=== PATIENT | male | born 1980 | race Caucasian/White ===

== ENCOUNTER 2024-06-19 14:38 | Outpatient (OUT) | payer BC, SELFPAY | END 2024-06-19 14:39 | disposition home or self-care (01) | LOC: PST 14:39 | PROVIDERS: Visit Provider Urology | DX: Z01.818 Encounter for other preprocedural examination (principal); N20.2 Calculus of kidney with calculus of ureter; F17.200 Nicotine dependence, unspecified, uncomplicated ==

== ENCOUNTER 2024-06-24 10:57 | Day surgery (SDC) | payer BC, SELFPAY ==
[2024-06-24] VITALS (10 sets, daily range): BP systolic 72–141; BP diastolic 51–89; PULSE 70–89; TEMP 36.2–36.3; O2SAT 87–98; BMI 46.2
--- OUTSIDE RECORDS SUMMARY | 2024-06-24 11:21 | XMS_ITS | CCD ---
Author Organization [facility] Care Team Providers Care Jig Builder Helper Name Role Phone Adelita Navas Unavailable Lashay White Unavailable NO FAMILY, PHYSICIAN Primary Care Provider Reuben Burciaga MD Emergency Provider [phone] Joe PARRISH Primary Care Physician [phone] NO FAMILY, PHYSICIAN Primary Care Unavailable Reuben Freire Jr Attending Unavailable Reuben Freire Jr Admitting Unavailable YUN, Joe Leo Attending Unavailable PARRISH, Joe Leo Admitting Unavailable PARRISH, Joe Leo Attending Unavailable SYLVAIN GARDNER Attending Unavailable SYLVAIN GARDNER Admitting Unavailable PARRISH, Joe Leo Attending Unavailable PARRISH, Joe Leo Attending Unavailable PARRISH, Joe Leo Attending Unavailable PARRISH, Joe Leo Admitting Unavailable PARRISH, Joe Leo Attending Unavailable PARRISH, Joe Leo Admitting Unavailable PARRISH, Joe Leo Attending Unavailable Medications Current Medications Medication Drug Class(es) Dates Sig (Normalized) Sig (Original) acetaminophen 325 mg / oxyCODONE hydrochloride 5 mg oral tablet (5 sources) Opioid Agonist Start: 05-31-2024 take 1 tablet by mouth every six hours as needed for pain Oxycodone-Acetami nophen (Percocet) 5-325 mg tablet Active 1 - 2 TAB PO Every 6 hours as needed for pain 25 35 May 31, 2024 Start: 01-15-2020 End: 05-31-2024 take 1 tablet by mouth every six hours as needed for pain Oxycodone-Acetaminophen (Percocet) 5-325 mg tablet Discontinued 1 TAB PO Q6H as needed for pain 10 3 January 15, 2020 May 31, 2024 1:25am Start: 01-01-2019 End: 04-15-2019 take 1 tablet by mouth every six hours as needed for pain Oxycodone-Acetaminophen (Percocet) 5-325 mg tablet Discontinued 1 TAB PO Q6H as needed for pain 10 3 January 01, 2019 April 15, 2019 7:18pm Start: 12-07-2018 End: 12-25-2018 take 1 tablet by mouth every six hours as needed for pain Oxycodone-Acetaminophen (Percocet) 5-325 mg tablet Discontinued 1 TAB PO Q6H as needed for pain 15 4 December 07, 2018 December 25, 2018 2:30pm Start: 02-02-2018 End: 02-07-2018 take 1 tablet by mouth every four to six hours as needed for pain Oxycodone-Acetaminophen (Percocet) 5-325 mg tablet Discontinued 1 TAB PO EVERY 4-6 HOURS as needed for pain 20 February 02, 2018 February 05, 2018 11:00pm February 06, 2018 11:02pm cefdinir 300 mg oral capsule (1 source) Cephalosporin Antibacterial Start: 08-14-2021 take 1 capsule by mouth every twelve hours Cefdinir 300 MG 1 capsule Orally every 12 hrs for 10 day(s) Jul, Active cephalexin 500 mg oral capsule (2 sources) Cephalosporin Antibacterial Start: 05-31-2024 take 2 capsules by mouth twice daily Cephalexin 500 mg capsule Active 1000 MG PO Twice daily 28 May 31, 2024 12:00am Start: 02-02-2018 End: 02-12-2018 take 2 capsules by mouth twice daily Cephalexin (Keflex) 500 mg capsule Discontinued 1000 MG PO Twice daily 40 February 01, 2018 11:00pm February 10, 2018 11:00pm February 11, 2018 11:01pm cetirizine hydrochloride 10 mg oral tablet (2 sources) Histamine-1 Receptor Antagonist Start: 08-05-2021 take 1 tablet by mouth once daily Cetirizine HCl 10 MG 1 tablet Orally Once a day for 30 day(s) Jul, Active fluticasone propionate 0.05 mg/actuat metered dose nasal spray (2 sources) Corticosteroid Start: 08-05-2021 take 1 spray(s) nasal route once daily Flonase Allergy Relief 50 MCG/ACT 1 spray in each nostril Nasally Once a day for 30 day(s) Jul, Active ibuprofen 600 mg oral tablet (2 sources) Nonsteroidal Anti-inflammatory Drug Start: 05-31-2024 take 1 tablet by mouth every eight hours as needed for pain Ibuprofen 600 mg tablet Active 600 MG PO Q8H as needed for pain May 31, 2024 12:00am Start: 12-07-2018 End: 12-25-2018 take 1 tablet by mouth three times daily as needed for pain Ibuprofen 800 mg tablet Discontinued 800 MG PO Three times daily as needed for pain December 06, 2018 11:00pm December 25, 2018 2:30pm oxyCODONE (7 sources) Opioid Agonist Start: 05-01-2015 oxycodone Oral , Refills(s) 0 Start Date: 05/01/15 Status: Ordered penicillin v potassium 500 mg oral tablet (1 source) Start: 08-05-2021 take 1 tablet by mouth every twelve hours Penicillin V Potassium 500 MG 1 tablet Orally Twice a day for 10 day(s) Jul, Active promethazine hydrochloride 25 mg oral tablet (7 sources) Phenothiazine Start: 05-01-2015 take 1 tablet by mouth every six hours as needed for nausea Phenergan 25 mg Tab 25 mg = 1 tab(s), Oral, q6hr, PRN as needed for nausea/vomiting, # 10 tab(s), Refills(s) 1 Start Date: 05/01/15 Status: Ordered tamsulosin hydrochloride 0.4 mg oral capsule (15 sources) alpha-Adrenergic Mendoza Start: 06-19-2024 take 0.4 mg by mouth once daily Flomax 0.4 mg, Oral, Daily, Refills(s) 0 Start Date: 06/19/24 Status: Ordered Start: 06-05-2024 End: 06-26-2024 Flomax 0.4 mg Cap 0.4 mg = 1 cap(s), Oral, BID, Decrease to once a day if experiencing dizziness or lightheadedness., X 21 day(s), # 42 cap(s), Refills(s) 0, Pharmacy: [facility], 182, cm, 06/05/24 14:12:00 EST, Height/Length Dosing, 159.4, kg, 06/05/24 14:12:00 EST, Weight Dosing Start Date: 06/05/24 Stop Date: 06/26/24 Status: Ordered Start: 01-15-2020 End: 05-31-2024 Tamsulosin (Flomax) 0.4 mg c apsule Active 0.4 MG PO Daily May 31, 2024 12:00am administer 30 minutes after same meal each day until stone passes Start: 01-01-2019 End: 04-15-2019 take 1 capsule by mouth once daily at bedtime Tamsulosin (Flomax) 0.4 mg capsule Discontinued 0.4 MG PO Daily at bedtime 7 December 31, 2018 11:00pm April 15, 2019 7:18pm Start: 12-07-2018 End: 01-01-2019 Tamsulosin (Flomax) 0.4 mg capsule,extended release 24hr Discontinued 0.4 MG PO Daily 7 December 06, 2018 11:00pm January 01, 2019 3:11pm administer 30 minutes after same meal each day until stone passes Start: 02-02-2018 End: 12-07-2018 take 1 capsule by mouth once daily Tamsulosin (Flomax) 0.4 mg capsule Discontinued 0.4 MG PO Daily February 01, 2018 11:00pm December 07, 2018 3:02pm Completed/Discontinued Medications Medication Drug Class(es) Dates Sig (Normalized) Sig (Original) [id number] 200 actuat albuterol 0.09 mg/actuat metered dose inhaler (1 source) beta2-Adrenergic Agonist Start: 04-15-2019 End: 01-15-2020 Albuterol Sulfate 90 mcg/actuation HFA aerosol inhaler Discontinued 1 INH INHALATION EVERY 4-6 HOURS as needed for shortness of breath or wheezing 6.7 April 15, 2019 12:00am January 15, 2020 5:29am azithromycin 500 mg oral tablet (1 source) Macrolide Antimicrobial Start: 04-15-2019 End: 01-15-2020 take 2-5 tablets by mouth once daily Azithromycin (Zithromax Tri-Robel) 500 mg tablet Discontinued 0 PO .COMPLEX 3 April 15, 2019 12:00am January 15, 2020 5:29am take 500 mg today (day 1), then 250 mg for 4 days (days 2-5) benzonatate 100 mg oral capsule (1 source) Non-narcotic Antitussive Start: 04-15-2019 End: 01-15-2020 take 1 capsule by mouth three times daily as needed for cough Benzonatate (Tessalon Perles) 100 mg capsule Discontinued 100 MG PO Three times daily as needed for cough April 15, 2019 12:00am January 15, 2020 5:29am ketorolac tromethamine 10 mg oral tablet (3 sources) Nonsteroidal Anti-inflammatory Drug, Cyclooxygenase Inhibitor Start: 06-13-2024 End: 06-18-2024 take 1 tablet by mouth every six hours as needed ketorolac 10 mg Tab 10 mg = 1 tab(s), Oral, q6hr, PRN for pain, not to exceed 40 mg/day and 5 days duration for all dose forms, X 5 day(s), # 12 tab(s), Refills(s) 0, Pharmacy: [facility] 318, 182, cm, 06/05/24 14:12:00 EST, Height/Length Dosing, 159.4, kg, 06/05/24 14:12:00 EST, Weight Dosing Start Date: 06/13/24 Stop Date: 06/18/24 Status: Ordered Start: 01-15-2020 End: 05-31-2024 take 1 tablet by mouth every six hours as needed for pain Ketorolac 10 mg tablet Discontinued 10 MG PO Q6H as needed for pain 20 January 15, 2020 6:45am May 31, 2024 1:25am ondansetron 4 mg disintegrating oral tablet (3 sources) Serotonin-3 Receptor Antagonist Start: 01-15-2020 End: 05-31-2024 take 1 tablet by mouth every six hours as needed for nausea and vomiting Ondansetron 4 mg tablet,disintegrating Discontinued 4 MG PO Q6H as needed for nausea and vomiting January 14, 2020 11:00pm May 31, 2024 1:25am Start: 12-07-2018 End: 12-25-2018 take 1 tablet by mouth every eight hours as needed for nausea and vomiting Ondansetron 4 mg tablet,disintegrating Discontinued 4 MG PO Q8H as needed for nausea and vomiting December 06, 2018 11:00pm December 25, 2018 2:30pm Start: 02-02-2018 End: 02-07-2018 take 1 tablet by mouth three times daily Ondansetron Hcl (Zofran) 4 mg tablet Discontinued 4 MG PO Three times daily 15 5 February 01, 2018 11:00pm February 05, 2018 11:00pm February 06, 2018 11:02pm predniSONE 50 mg oral tablet (1 source) Start: 04-15-2019 End: 01-15-2020 take 1 tablet by mouth once daily Prednisone 50 mg tablet Discontinued 50 MG PO Daily 5 April 15, 2019 12:00am January 15, 2020 5:29am Problems Active Problems Problem Classification Problem Date Documented Date Episodic/Chronic Abdominal pain (1 source) Left lower quadrant pain; Translations: [Left lower quadrant pain] Onset: 05-30-2024 Episodic Calculus of urinary tract (20 sources) Renal colic; Translations: [Unspecified renal colic] Onset: 05-30-2024 03-29-2023 Episodic Comment on above: Problem List clean-u p per request of Phys. EHR Cmte Genitourinary symptoms and ill-defined conditions (2 sources) Disorder of urinary tract; Translations: [Disorder of urinary system, unspecified] Onset: 06-14-2024 03-29-2023 Episodic Comment on above: Problem List clean-u p per request of Phys. EHR Cmte Other diseases of kidney and ureters (2 sources) Urinary tract obstruction; Translations: [Hydronephrosis with renal and ureteral calculous obstruction] Onset: 06-05-2024 Episodic Otitis media and related conditions (2 sources) Other acute nonsuppurative otitis media, bilateral; Translations: [Acute left otitis media] Onset: 08-05-2021 Resolved: 08-05-2021 Episodic Comment on above: Problem List clean-u p per request of Phys. EHR Cmte Pneumonia (except that caused by tuberculosis or sexually transmitted disease) (1 source) Atypical pneumonia; Translations: [Pneumonia, unspecified organism] 03-29-2023 Episodic Comment on above: Problem List clean-u p per request of Phys. EHR Cmte Residual codes; unclassified (1 source) Tobacco user; Translations: [Tobacco use] 03-29-2023 Episodic Comment on above: Problem List clean-u p per request of Phys. EHR Cmte Substance-related disorders (9 sources) Nicotine dependence; Translations: [Nicotine dependence, unspecified, uncomplicated] Onset: 06-05-2024 Chronic Comment on above: Added secondary to d ocumentation in Social History. Unclassified (7 sources) Obstructive hydronephrosis 06-05-2024 Urinary tract infections (1 source) Urinary tract infectious disease; Translations: [Urinary tract infection, site not specified] 05-31-2024 Episodic Past or Other Problems Problem Classification Problem Date Documented Date Episodic/Chronic Other upper respiratory infections (3 sources) Streptococcal pharyngitis; Translations: [Acute pharyngitis, unspecified] Onset: 08-05-2021 Resolved: 08-14-2021 Episodic Results Test Name Value Interpretation Reference Range Facility Ambulatory Visit Summaryon 0 06-19-2024 Ambulatory Visit Summary Ambulatory Visit Summary GORDON CARRASQUILLO :1980 Visit Date:06/19/2024 Ambulatory Visit Instructions Your Diagnosis Ureteral stone with hydronephrosis Kidney stones History of kidney stones Smoker Your Care Team Attending Physician - Joe PARRISH MD Primary Care Physician - Joe PARRISH MD This Is Your Medications List tamsulosin (Flomax 0.4 mg Cap) Contact prescribing physician if questions or concerns oxycodone promethazine (Phenergan 25 mg Tab) tamsulosin (Flomax) Procedures Performed Cyst. Discharge Vitals Heart Rate (Peripheral) 85 Blood Pressure 158/102 Height 72 in Height 182 cm Weight 351.416 lb Weight 159.4 kg BMI 48.12 What to do next You Need to Schedule the Following Appointments Follow Up with YUN GRACE, Joe Leo, LORI When: Where: [facility] [address], [place] [address]- Medications What How Much When Instructions Unchanged tamsulosin (Flomax 0.4 mg Cap) 1 Capsules By Mouth 2 times a day Duration: 21 Days Decrease to once a day if experiencing dizziness or lightheadedness. Unchanged oxycodone By Mouth Contact prescribing physician if questions or concerns Unchanged promethazine (Phenergan 25 mg Tab) 1 Tablets By Mouth Every 6 hours as needed for as needed for nausea/vomiting Contact prescribing physician if questions or concerns Unchanged tamsulosin (Flomax) 0.4 Milligram By Mouth Every day Contact prescribing physician if questions or concerns Allergies No Known Allergies Problems Ongoing - Any problem that you are currently receiving treatment for. History of kidney stones Kidney stones Smoker Ureteral stone with hydronephrosis Historical - Any problem that you are no longer receiving treatment for. Kidney stone Patient Survey You may receive a survey via text or e-mail asking about your office visit. Please share your experience with us by completing your survey. We appreciate your feedback and thank you for choosing us for your care. Education Materials ESWL for Kidney Stones, Care After The following information offers guidance on how to care for yourself after your procedure. Your health care provider may also give you more specific instructions. If you have problems or questions, contact your health care provider. What can I expect after the procedure? After the procedure, it is common to have: ??? Some blood in your urine. This should only last for a few days. ??? Soreness in your back, sides, or upper abdomen for a few days. ??? Blotches or bruises on the area where the shock wave entered the skin. ??? Pain, discomfort, or nausea when pieces (fragments) of the kidney stone move through the tube that carries urine from the kidney to the bladder (ureter). Fragments may pass soon after the procedure. They may also take up to 4???8 weeks to pass. ? If you have severe pain or nausea, contact your health care provider. This may be caused by a large stone that was not broken up enough. This may mean that you need more treatment. ??? Some pain or discomfort during urination. ??? Some pain or discomfort in the lower abdomen or at the base of the penis. Follow these instructions at home: Medicines ??? Take [id number] and prescription medicines only as told by your health care provider. ??? If you were prescribed antibiotics, take them as told by your health care provider. Do not stop using the antibiotic even if you start to feel better. ??? Ask your health care provider if the medicine prescribed to you: ? Requires you to avoid driving or using machinery. ? Can cause constipation. You may need to take these actions to prevent or treat constipation: ? Take jhie-hzt-tbisumi or prescription medicines. ? Eat foods that are high in fiber, such as beans, whole grains, and fresh fruits and vegetables. ? Limit foods that are high in fat and processed sugars, such as fried or sweet foods. Eating and drinking ??? Follow instructions from your health care provider about what you may eat and drink. You may be told to: ? Reduce how much salt (sodium) you eat or drink. Check ingredients and nutrition facts on packaged foods and drinks to see how much sodium they contain. ? Reduce how much meat you eat. ??? Drink enough fluid to keep your urine pale yellow. This can help you pass any pieces of the stone that are left. It can also prevent new stones from forming. ??? Eat plenty of fresh fruits and vegetables. ??? Eat the recommended amount of calcium for your age and gender. Ask your health care provider how much calcium you should have. Activity ??? Get plenty of rest as told by your health care provider. ??? Avoid sitting for a long time without moving. Get up to take short walks every 1???2 hours. This is important to improve blood flow and breathing. Ask for help if you (more content not included)... [facility] Ambulatory Visit Summary Ambulatory Visit Summary GORDON CARRASQUILLO :1980 Visit Date:06/19/2024 Ambulatory Visit Instructions Your Diagnosis Ureteral stone with hydronephrosis Kidney stones History of kidney stones Smoker Your Care Team Attending Physician - Joe PARRISH MD Primary Care Physician - Joe PARRISH MD This Is Your Medications List tamsulosin (Flomax 0.4 mg Cap) Contact prescribing physician if questions or concerns oxycodone promethazine (Phenergan 25 mg Tab) tamsulosin (Flomax) Procedures Performed Cyst. Discharge Vitals Heart Rate (Peripheral) 85 Blood Pressure 158/102 Height 72 in Height 182 cm Weight 351.416 lb Weight 159.4 kg BMI 48.12 What to do next You Need to Schedule the Following Appointments Follow Up with Joe PARRISH MD, URL When: Where: [facility] [address] , [place] [address]- Medications What How Much When Instructions Unchanged tamsulosin (Flomax 0.4 mg Cap) 1 Capsules By Mouth 2 times a day Duration: 21 Days Decrease to once a day if experiencing dizziness or lightheadedness. Unchanged oxycodone By Mouth Contact prescribing physician if questions or concerns Unchanged promethazine (Phenergan 25 mg Tab) 1 Tablets By Mouth Every 6 hours as needed for as needed for nausea/vomiting Contact prescribing physician if questions or concerns Unchanged tamsulosin (Flomax) 0.4 Milligram By Mouth Every day Contact prescribing physician if questions or concerns Allergies No Known Allergies Problems Ongoing - Any problem that you are currently receiving treatment for. History of kidney stones Kidney stones Smoker Ureteral stone with hydronephrosis Historical - Any problem that you are no longer receiving treatment for. Kidney stone Patient Survey You may receive a survey via text or e-mail asking about your office visit. Please share your experience with us by completing your survey. We appreciate your feedback and thank you for choosing us for your care. Education Materials ESWL for Kidney Stones, Care After The following information offers guidance on how to care for yourself after your procedure. Your health care provider may also give you more specific instructions. If you have problems or questions, contact your health care provider. What can I expect after the procedure? After the procedure, it is common to have: ??? Some blood in your urine. This should only last for a few days. ??? Soreness in your back, sides, or upper abdomen for a few days. ??? Blotches or bruises on the area where the shock wave entered the skin. ??? Pain, discomfort, or nausea when pieces (fragments) of the kidney stone move through the tube that carries urine from the kidney to the bladder (ureter). Fragments may pass soon after the procedure. They may also take up to 4???8 weeks to pass. ? If you have severe pain or nausea, contact your health care provider. This may be caused by a large stone that was not broken up enough. This may mean that you need more treatment. ??? Some pain or discomfort during urination. ??? Some pain or discomfort in the lower abdomen or at the base of the penis. Follow these instructions at home: Medicines ??? Take eqtk-otk-nzpzzhy and prescription medicines only as told by your health care provider. ??? If you were prescribed antibiotics, take them as told by your health care provider. Do not stop using the antibiotic even if you start to feel better. ??? Ask your health care provider if the medicine prescribed to you: ? Requires you to avoid driving or using machinery. ? Can cause constipation. You may need to take these actions to prevent or treat constipation: ? Take [id number] or prescription medicines. ? Eat foods that are high in fiber, such as beans, whole grains, and fresh fruits and vegetables. ? Limit foods that are high in fat and processed sugars, such as fried or sweet foods. Eating and drinking ??? Follow instructions from your health care provider about what you may eat and drink. You may be told to: ? Reduce how much salt (sodium) you eat or drink. Check ingredients and nutrition facts on packaged foods and drinks to see how much sodium they contain. ? Reduce how much meat you eat. ??? Drink enough fluid to keep your urine pale yellow. This can help you pass any pieces of the stone that are left. It can also prevent new stones from forming. ??? Eat plenty of fresh fruits and vegetables. ??? Eat the recommended amount of calcium for your age and gender. Ask your health care provider how much calcium you should have. Activity ??? Get plenty of rest as told by your health care provider. ??? Avoid sitting for a long time without moving. Get up to take short walks every 1???2 hours. This is important to improve blood flow and breathing. Ask for help if you (more content not included)... [facility] Provider Letteron 06-19-2024 Provider Letter Provider Letter June 19, 2024 [address] [place] [address] : 1980 To Whom It May Concern, Please excuse above patient from work. Date of Illness: From: 06/19/2024 To: 06/24/2024 May Return to Work On: 06/25/2024 Restrictions: No work 06/19/24 thru 06/24/2024 Comments: Patient is having surgical procedure 06/20/[address] Joe Parrish. Sincerely, [facility] [address] [place] [address] [facility] Provider Letter Provider Letter June 19, 2024 GORDON CARRASQUILLO [address] [place] [address] : 1980 To Whom It May Concern, Please excuse above patient from work. Date of Illness: From: 06/19/2024 To: 06/23/2024 May Return to Work On: 06/24/2024 Restrictions: No work 06/19/24 thru 06/23/2024 Comments: Patient is having surgical procedure 06/20/[address] Joe Parrish. Sincerely, [facility] [address] [place] [address] [facility] Urology Office/Clinic Noteon 06-19-2024 Urology Office/Clinic Note Urology Office/Clinic Note Chief Complaint 2 week f/u with KUB HPI Staff 2 wks w/ KUB while undergoing MET for left ureteral stone. Previous dx: ureteral stone with hydro, kidney stones, hx of kidney stones, smoker. KUB done 06/05/24 [facility]. Neg urine cx 06-17-24 Pt is having discomfort and pain in the end of penis. Pt denies left flank pain since he was in the ER. pt states urine stream does not seem affected pain is worse when urinating. Pt thinks he may have seen blood in urine UA today showing moderate blood. History of Present Illness Tests reviewed: UA, KUB I have reviewed the previous health record information and history for this patient from Dr. Parrish. I have reviewed and verified the staff HPI to be accurate for this encounter. Review of Systems PHQ Score Initial Depression Screen Score: 0 SCORE ROS - Provider Constitutional: denies weight loss, denies hot flashes. Eyes: denies eye problems. Gastrointestinal: denies nausea, denies vomiting. Cardiovascular: denies chest pain or angina. Integumentary: no dryness Musculoskeletal: denies musculoskeletal symptoms. ENMT: denies otolaryngeal symptoms. Respiratory: no shortness of breath. Heme/Lymph: denies easy bleeding tendency, denies easy bruising tendency. Psychiatric: no confusion, no anxiety. Genitourinary: See HPI. Physical Exam Vitals & Measurements HR: 85(Peripheral) BP: 158/102 HT: 72 in HT: 182 cm WT: 159.4 kg WT: 351.416 lb BMI: 48.12 General Appearance: alert, no distress, well nourished, well developed male. Assessment/Plan Not diabetic. No BTs. No GLP-1s. 1. Ureteral stone with hydronephrosis (N13.2: Hydronephrosis with renal and ureteral calculous obstruction) [facility] ED visit on 05/30/24 d/t L flank/LLQ pain radiating to L testicle, hematuria, N/V. CT AP wo con 05/30/24 - Mild L sided hydroureteronephrosis secondary to L distal ureteral stone 6 x 4 x 10 mm. KUB 06/05/24 [facility] [place] - Ureteral stone not mentioned. KUB 06/19/24 [facility] - Ureteral stone not mentioned. Personal review: three calcifications, one likely represents the ureteral stone but guessing the most distal, other two likely phleboliths. UA shows moderate blood wo signs of infection. Intermittent severe pain otherwise annoying discomfort. Reviewed imaging with pt, suspect he hasn't passed stone. He is interested in surgical intervention. Discussed cysto, urs, laser litho, stent placement. Educated that he is unlikely to pass stone since he has not passed it yet, the longer he waits, the more greater risk of complications. -Pt to call or go to the ER if they were to experience fever, shaking, chills, uncontrolled nausea, vomiting, or pain -Strain urine, call if stone passes -Will schedule cysto, urs, Left laser litho, stent placement. The procedural risks, benefits, details, and treatment alternatives have been discussed with the patient. These include bleeding, infection, inability to break or retrieve all of the stone, injury to the ureter (the tube which connects the kidney to the bladder), injury to the kidney scarring of the ureter, and need for repeat procedures, among others. Full informed consent has been obtained. Will order General anesthesia. 2. Kidney stones (N20.0: Calculus of kidney) CT AP wo con 05/30/24 - 8 mm LLP stone. Punctate RLP renal stones. KUB 06/05/24 [facility] - 9 mm LLP stone. KUB 06/19/24 [facility] - 9 mm LLP stone. Once #1 treated, can consider staged ESWL which wouldn't require stent. Fragmentation of stone depends on stone hardness. Can break into sand/grits or small fragments. Since pt was added onto tomorrow's schedule emergently, no guarantee both ureteral stone and renal stone can be treated at the same time. Will consent for both procedures, if ureteral stone procedure is going well tomorrow, will consider treating both ureteral stone THEN renal stone at the same time. -Will schedule potential Left ESWL for L renal stone (after ureteral stone if time/condition allows). The procedure risks, benefits, details and treatment alternatives have been discussed with the patient. These include blood in the urine, infection, bleeding around the kidney, kidney bruising, inability to break up the stone, need for blood transfusion, blockage from stone fragments, and need for additional procedures, among others. Full informed consent has been obtained. Will order General anesthesia. 3. History of kidney stones (Z87.442: Personal history of urinary calculi) Hx of stones, largest was 2.5 mm. Did a hydration study through [facility] over a 6 mo time period. Stones seemed to be caused d/t dehydration. Recent fluid intake hasn't been as high recently as it was during the hydration study. [1] Pt is interested in learning why he is making larger stones. Discussed metabolic workup including 24 hour urine and blood work for stone prevention. -Metabolic workup after #1 resolved 4. Smoker (F17.200: Nicotine dependence, unspecified, uncomplicated) Increased risk for urothelial cancer. Smo (more content not included)... [facility] Comment on above: Result Comment: Elec tronically Signed By: Joe PARRISH MD\.br\Date and Time Signed: 06/19/24 11:06 EST\.br\Electronically Co-Signed By: Cristal Canada\.br\Date and Time Co-Signed: 06/19/24 11:01 EST XR Abdomen 1 Viewon 06-20-19 XR Abdomen 1 View Exam Date/Time: 06/19/2024 10:11 EST Reason for Exam: Kidney stone Report IMPRESSION: Left renal calculus, unchanged. EXAMINATION/TECHNIQUE: XR Abdomen 1 View HISTORY: Kidney stones. COMPARISON: 06/05/2024. RESULT: 9 mm calculus in the region of the left lower pole, similar to prior. No other distinct urinary tract calcifications radiographically. Probable pelvic phleboliths, grossly unchanged. Nondilated bowel gas pattern. Scattered colonic feces. No acute osseous findings. Degenerative changes. Lung bases unremarkable. No other significant abnormality. Ordering Provider: Joe PARRISH FINAL REPORT Dictated: 06/19/2024 10:16 am Robbie Bruce MD Signed (Electronic Signature): 06/19/2024 10:16 am Signed by: Robbie Bruce MD Transcribed by: SINAN Technologist: LEOPOLDO [facility] C Urineon 06-17-2024 Bacteria identified Cx Nom (U) Microbiology PROCEDURE: Urine Culture [R1] SOURCE: U Random BODY SITE: COLLECTED DATE/TIME: 06/14/2024 14:08 EST RECEIVED DATE/TIME: 06/15/2024 13:13 EST START DATE/TIME: 06/15/2024 13:13 EST FREE TEXT SOURCE: SYLVAIN GARDNER PA-C, PA-C, JENNIFER E FINAL REPORTS Final Report [] Verified Date/Time: 06/17/2024 08:39 EST No growth at 2 days. Performing Locations R1: This test was performed at: [facility], [address] [place] [address], [id number] , , Normal [facility] Comment on above: Performed By: #### 2 [id number] #### [facility] [address] [place] [id number] Ambulatory Visit Summaryon 0 06-05-2024 Ambulatory Visit Summary Ambulatory Visit Summary GORDON CARRASQUILLO :1980 Visit Date:06/05/2024 Ambulatory Visit Instructions Your Diagnosis Ureteral stone with hydronephrosis Kidney stones History of kidney stones Smoker Tests Performed XR Abdomen 1 View -- Results Pending -- Please visit your patient portal for your results or contact your primary care physician. Your Care Team Attending Physician - Joe PARRISH MD Primary Care Physician - Joe PARRISH MD This Is Your Medications List tamsulosin (Flomax 0.4 mg Cap) Contact prescribing physician if questions or concerns oxycodone promethazine (Phenergan 25 mg Tab) Procedures Performed Cyst. Discharge Vitals Temperature (Tympanic) 37.1 ???C Heart Rate (Peripheral) 85 Blood Pressure 138/90 Height 72 in Height 182 cm Weight 351.416 lb Weight 159.4 kg BMI 48.12 What to do next Scheduled Follow-Up Appointments Monday 9:45 AM EST With: Joe PARRISH MD Where: [facility] [address] [place] [address]- You Need to Schedule the Following Appointments Follow Up with Joe PARRISH MD, URL When: Where: [facility] [address] [place] [address]- Medications What How Much When Instructions Changed tamsulosin (Flomax 0.4 mg Cap) 1 Capsules By Mouth 2 times a day Duration: 21 Days Decrease to once a day if experiencing dizziness or lightheadedness. Pickup at [facility] 318 Unchanged oxycodone By Mouth Contact prescribing physician if questions or concerns Unchanged promethazine (Phenergan 25 mg Tab) 1 Tablets By Mouth Every 6 hours as needed for as needed for nausea/vomiting Contact prescribing physician if questions or concerns Pharmacy Information [facility]: [address] [place] [id number] [phone] Medications and Immunizations Administered Not Given influenza virus vaccine, inactivated, Postpone due to refusal Allergies No Known Allergies Problems Ongoing - Any problem that you are currently receiving treatment for. History of kidney stones Kidney stones Smoker Ureteral stone with hydronephrosis Historical - Any problem that you are no longer receiving treatment for. Kidney stone Patient Survey You may receive a survey via text or e-mail asking about your office visit. Please share your experience with us by completing your survey. We appreciate your feedback and thank you for choosing us for your care. Education Materials ESWL for Kidney Stones Extracorporeal shock wave lithotripsy (ESWL) is a treatment that can help break up kidney stones that are too large to pass on their own. This is a nonsurgical procedure that breaks up a kidney stone with shock waves. These shock waves pass through your body and focus on the kidney stone. They cause the kidney stone to break into smaller pieces (fragments) while it is still in the urinary tract. The fragments of stone can pass more easily out of your body in the urine. Tell a health care provider about: ??? Any allergies you have. ??? All medicines you are taking, including vitamins, herbs, eye drops, creams, and nbja-ubr-vrsrudg medicines. ??? Any problems you or family members have had with anesthetic medicines. ??? Any bleeding problems you have. ??? Any surgeries you have had. ??? Any medical conditions you have. ??? Whether you are or may be . What are the risks? Your health care provider will talk with you about risks. These may include: ??? Infection. ??? Bleeding from the kidney. ??? Bruising of the kidney or skin. ??? Scarring of the kidney. This can lead to: ? Increased blood pressure. ? Poor kidney function. ? Return (recurrence) of kidney stones. ??? Damage to other structures or organs. This may include the liver, colon, spleen, or pancreas. ??? Blockage (obstruction) of the tube that carries urine from the kidney to the bladder (ureter). ??? Failure of the kidney stone to break into fragments. What happens before the procedure? When to stop eating and drinking Follow instructions from your health care provider about what you may eat and drink. These may include: ??? 8 hours before your procedure ? Stop eating most foods. Do not eat meat, fried foods, or fatty foods. ? Eat only light foods, such as toast or crackers. ? All liquids are okay except energy drinks and alcohol. ??? 6 hours before your procedure ? Stop eating. ? Drink only clear liquids, such as water, clear fruit juice, black coffee, plain tea, and sports drinks. ? Do not drink energy drinks or alcohol. ??? 2 hours before your procedure ? Stop drinking all liquids. ? You may be allowed to take medicines with small sips of water. If you do not follow your health care provider's ins (more content not included)... [facility] Urology Office/Clinic Noteon 06-05-2024 Urology Office/Clinic Note Urology Office/Clinic Note Chief Complaint ER f/u HPI Staff New Pt. Hospital follow up. Pt was seen at [facility] on 05/30/24 due to left flank pain/lower quadrant pain radiating to his left testicle. CT SCAN 05/30/24 *flomax 0.4mg BUN 10, Creatinine 0.91- 05/30/24 No PSAs Dysuria: denies Incomplete bladder emptying: denies Hematuria: denies Frequency: denies Urgency: denies Nocturia: 0-1 Stream: steady Leaking: denies Post void dripping: denies Wearing pads/ Depends: denies Urge incontinence: denies Stress incontinence: denies Incontinence without Sensory Awareness: denies Abdominal pain: yes and pelvic pain Flank pain: dull Sexual complaints: _ History of Present Illness Tests reviewed: UA, CT, labs I have reviewed the previous health record information and history for this patient from [facility]. I have reviewed and verified the staff HPI to be accurate for this encounter. Review of Systems PHQ Score Initial Depression Screen Score: 0 SCORE ROS - Provider Constitutional: denies weight loss, denies hot flashes. Eyes: denies eye problems. Gastrointestinal: denies nausea, denies vomiting. Cardiovascular: denies chest pain or angina. Integumentary: no dryness Musculoskeletal: denies musculoskeletal symptoms. ENMT: denies otolaryngeal symptoms. Respiratory: no shortness of breath. Heme/Lymph: denies easy bleeding tendency, denies easy bruising tendency. Psychiatric: no confusion, no anxiety. Genitourinary: See HPI. Physical Exam Vitals & Measurements T: 37.1 ???C(Tympanic) HR: 85(Peripheral) BP: 138/90 HT: 72 in HT: 182 cm WT: 159.4 kg WT: 351.416 lb BMI: 48.12 General Appearance: alert, no distress, well nourished, well developed male. Assessment/Plan Gordon is a 43 yo male new pt following up to [facility] ED visit on 05/30/24 d/t L flank/LLQ pain radiating to L testicle, hematuria, N/V. No hx of kidney stones. Not diabetic. IPSS 0. 1. Ureteral stone with hydronephrosis (N13.2: Hydronephrosis with renal and ureteral calculous obstruction) CT AP wo con 05/30/24 - Mild L sided hydroureteronephrosis secondary to L distal ureteral stone 6 x 4 x 10 mm. UA shows moderate blood wo signs of infection. Doesn't think he has passed stone. Intermittent, vague sxs prior to presenting to ER. Reviewed imaging with pt. Had pain last night which was the most pain he has had since his ED visit. Unlikely that stone has passed given hematuria and pain last night. Discussed options including try to pass stone on his own with MET and high fluid intake with imaging in a couple wks, surgical intervention options including ESWL if visible on x-ray (less invasive, lower stone free rate) and ureteroscopy/laser litho with possible stent placement (more invasive, higher stone free rate). Risks and benefits of each discussed. L>R tenderness on exam today. Pt elects to try MET, if he hasn't passed stone in 2 wks, will consider surgical intervention at that time. Follow up 2 wks with KUB or sooner if needed. Pt understands and agrees with plan. -KUB IO today. -Pt to call or go to the ER if they were to experience fever, shaking, chills, uncontrolled nausea, vomiting, or pain. -Cont Flomax 0.4 mg, increase to bid. SEs discussed. [facility]. -Start straining urine (strainer given). -High fluid intake. 2. Kidney stones (N20.0: Calculus of kidney) CT AP wo con 05/30/24 - Punctate RLP renal stones. 8 mm LLP stone. 3. History of kidney stones (Z87.442: Personal history of urinary calculi) Hx of stones, largest was 2.5 mm. Did a hydration study through [facility] over a 6 mo time period. Stones seemed to be caused d/t dehydration. Recent fluid intake hasn't been as high recently as it was during the hydration study. 4. Smoker (F17.200: Nicotine dependence, unspecified, uncomplicated) Increased risk for urothelial cancer. Smoking cessation education attached. Follow-up With When Contact Information YUN GRACE, Joe Leo, URL [facility] [address], [place] [facility] [place] [address]- Additional Instructions: 2 wks with KUB Patient Education ESWL for Kidney Stones Laser Therapy for Kidney Stones Steps to Quit Smoking Dietary Guidelines to Help Prevent Kidney Stones ICristal, personally scribed for Dr. Parrish on 06/05/2024 14:29:28. . Documentation recorded by the scribe, Cristal Canada, accurately reflects the services(s) I performed and decisions made by me. Authenticated by Dr. Parrish on 06/05/2024 14:34:37. Problem List/Past Medical History Ongoing History of kidney stones Kidney stones Smoker Ureteral stone with hydronephrosis Historical Kidney stone Procedure/Surgical History Cyst. Medications Flomax, 0.4 mg, Oral, Daily oxycodone, Oral Phenergan 25 mg Tab, 25 mg= 1 tab(s), Oral, q6hr, PRN, 1 refills Allergies No Known Allergies Social History Tobacco Former smoker, quit more than 30 days ago (more content not included)... [facility] Comment on above: Result Comment: Elec tronically Signed By: Joe PARRISH MD R\.br\Date and Time Signed: 06/05/24 14:34 EST\.br\Electronically Co-Signed By: Cristal [place]\.br\Date and Time Co-Signed: 06/05/24 14:30 EST XR Abdomen 1 Viewon 06-05-19 XR Abdomen 1 View Exam Date/Time: 06/05/2024 14:42 EST Reason for Exam: Kidney stone Report IMPRESSION: LEFT LOWER POLE RENAL CALCULUS. CLINICAL HISTORY: Kidney stone. Left flank pain. COMPARISON: NONE. FINDINGS: Gas and stool in colon. No diffuse or localized small bowel dilatation. No mass effect. 9 mm calculus overlies lower pole left kidney. Marginal osteophytes mid to lower lumbar spine. Ordering Provider: Joe PARRISH FINAL REPORT Dictated: 06/05/2024 2:57 pm Augie Blake MD Signed (Electronic Signature): 06/05/2024 2:57 pm Signed by: Augie Blake MD Transcribed by: SINAN Technologist: LEOPOLDO [facility] Alanine aminotransferase [En zymatic activity/volume] in Serum or PlasmaOrdered By: Karol Tovar on 05-30-2024 ALT [Catalytic activity/Vol] Alanine aminotransferase [Enzymatic activity/volume] in Serum or Plasma 7-52 [facility] Albumin [Mass/volume] in Ser um or Plasma by Bromocresol green (BCG) dye binding methoOrdered By: Karol Tovar on 05-30-2024 Albumin BCG dye [Mass/Vol] Albumin [Mass/volume] in Serum or Plasma by Bromocresol green (BCG) dye binding metho 3.5-5.7 [facility] Alkaline phosphatase [Enzyma tic activity/volume] in Serum or PlasmaOrdered By: Karol Tovar on 05-30-2024 ALP [Catalytic activity/Vol] Alkaline phosphatase [Enzymatic activity/volume] in Serum or Plasma 34-104 [facility] Appearance of UrineOrdered B y: Karol Tovar on 05-30-2024 Appearance (U) Urine appearance Abnormal Clear [facility] Aspartate aminotransferase [ Enzymatic activity/volume] in Serum or PlasmaOrdered By: Karol Tovar on 05-30-2024 AST [Catalytic activity/Vol] Aspartate aminotransferase [Enzymatic activity/volume] in Serum or Plasma [facility] Bacteria [Presence] in Urine by AutomatedOrdered By: Karol Tovar on 05-30-2024 Bacteria Auto Ql (U) Bacteria [Presence] in Urine by Automated None Seen [facility] Basophils Auto (Bld) [#/Vol] Ordered By: Karol Tovar on 05-30-2024 Basophils (Bld) [#/Vol] Automated basophil count 0.0-0.2 [facility] Basophils/100 WBC Auto (Bld) Ordered By: Karol Tovar on 05-30-2024 Basophils/100 WBC (Bld) Automated basophil % . [facility] Bilirubin Test strip Ql (U)O rdered By: Karol Tovar on 05-30-2024 Bilirubin Ql (U) Bilirubin.total [Presence] in Urine by Test strip Negative [facility] Bilirubin.direct [Mass/volum e] in Serum or PlasmaOrdered By: PROVIDER TEMP on 05-30-2024 Bilirubin.direct [Mass/Vol] Bilirubin.direct [Mass/volume] in Serum or Plasma 0.03-0.18 [facility] Bilirubin.total [Mass/volume ] in Serum or PlasmaOrdered By: Karol Tovar on 05-30-2024 Bilirubin [Mass/Vol] Bilirubin.total [Mass/volume] in Serum or Plasma 0.3-1.0 [facility] CT abdomen pelvis wo conon 0 05-30-2024 CT [place] [address] CT Scan Report Signed Patient: Gordon Carrasquillo MR#: [id number] [birth year] : 1980 Acct:[id number] Age/Sex: 43 / M ADM Date: 05/30/24 Loc: ER Room: Type: PRE ER Attending Dr: Copies to: Karol Tovar APRN TEMP, PROVIDER Ordering Provider: Karol Tovar APRN Date of Service: 05/30/24 CT/CT abdomen pelvis wo con: pain CT ABDOMEN AND PELVIS WITHOUT INTRAVENOUS CONTRAST: CLINICAL HISTORY: Lower abdominal pain since 5:30, hematuria, history of kidney stones COMPARISON: 01/15/2020 TECHNIQUE: Spiral images were obtained through the abdomen and pelvis without intravenous contrast. This CT exam was performed using one or more following dose reduction techniques: Automated exposure control, adjustment of the mA and/or kV according to patient size, or use of iterative reconstruction technique. FINDINGS: Lung Bases: [Lung bases are clear.] Organs:There is fatty infiltration liver. Otherwise the liver, spleen, adrenal glands, pancreas unremarkable. Gallbladder appears contracted. Kidneys measure size. Punctate right lower pole calculi nonobstructive. Evidence of left lower pole calculus 8 mm in size nonobstructive. Mild left-sided hydroureteronephrosis.. Left distal ureteral calculi up to 1 cm and craniocaudal length and 6 x 4 mm on the axial images..[ GI: Mild retained stool. No bowel obstruction. Appendix unremarkable.[ Pelvis:[Bladder collapsed. Prostate is 4 cm transverse . Small fat-containing right inguinal hernia Peritoneum/Retroperiton eum:No free air or free fluid. No bulky adenopathy. Tiny fat-containing umbilical hernia.[ Abd wall/Bones:Degenerative changes lower lumbar spine.[ CT/CT abdomen pelvis wo con IMPRESSION: Mild left-sided hydroureteronephrosis caused by left distal ureteral calculi 6 x 4 x 10 mm Impression dictated by: Brayan Briseno M.D.05/30/2024 10:44 PM Dictation Location: [place] [address] Transcribed By: [facility] 05/30/242243 Dictated By: Brayan Briseno MD 05/30/242237 Signed By: 05/30/242243 Normal [facility] Calcium [Mass/volume] in Ser um or PlasmaOrdered By: Karol Tovar on 05-30-2024 Calcium [Mass/Vol] Calcium [Mass/volume ] in Serum or Plasma 8.6-10.3 [facility] Carbon dioxide, total [Moles /volume] in Serum or PlasmaOrdered By: Karol Tovar on 05-30-2024 CO2 [Moles/Vol] Carbon dioxide, tota l [Moles/volume] in Serum or Plasma 21.0-31.0 [facility] Chloride [Moles/volume] in S gracia or PlasmaOrdered By: Karol Tovar on 05-30-2024 Chloride [Moles/Vol] Chloride [Moles/vol ume] in Serum or Plasma 98-107 [facility] Color Auto (U)Ordered By: Julio Tovar on 05-30-2024 Color (U) Color of Urine by Auto Abnormal Yellow [facility] Blood Count Auto Di ffon 05-30-2024 Basophils (Bld) [#/Vol] 0.1 10*3/uL Normal 0.0-0.2 [facility] Comment on above: Result Comment: PERF ORMED BY: [place] [address] PATHOLOGIST FINANCIAL PLANNING ANALYST CHICO UGALDE M.D. Performed By: #### C MP, LIPASE, CBC, HEPATIC #### [address] Basophils/100 WBC (Bld) 0.6 % Normal . [facility] Comment on above: Performed By: #### C MP, LIPASE, CBC, HEPATIC #### [address] Eosinophils (Bld) [#/Vol] 0.1 10*3/uL Normal 0.0-0.45 [facility] Comment on above: Performed By: #### C MP, LIPASE, CBC, HEPATIC #### [address] Eosinophils/100 WBC (Bld) 0.5 % Normal . [facility] Comment on above: Performed By: #### C MP, LIPASE, CBC, HEPATIC #### [address] Erythrocyte distribution width (RBC) [Ratio] 12.7 % Normal 12.0-14.8 [facility] Comment on above: Performed By: #### C MP, LIPASE, CBC, HEPATIC #### [address] Hematocrit (Bld) [Volume fraction] 46.8 % Normal 38.8-50.0 [facility] Comment on above: Performed By: #### C MP, LIPASE, CBC, HEPATIC #### [address] Hemoglobin (Bld) [Mass/Vol] 16.1 g/dL Normal 13.0-17.0 [facility] Comment on above: Performed By: #### C MP, LIPASE, CBC, HEPATIC #### [address] Lymphocytes (Bld) [#/Vol] 1.6 10*3/uL Normal 1.00-4.8 [facility] Comment on above: Performed By: #### C MP, LIPASE, CBC, HEPATIC #### [address] Lymphocytes/100 WBC (Bld) 12.4 % Normal . [facility] Comment on above: Performed By: #### C MP, LIPASE, CBC, HEPATIC #### [address] MCH (RBC) [Entitic mass] 30.7 pg Normal 27.5-35.2 [facility] Comment on above: Performed By: #### C MP, LIPASE, CBC, HEPATIC #### [address] MCV (RBC) [Entitic vol] 89.3 fL Normal 83.5-101 [facility] Comment on above: Performed By: #### C MP, LIPASE, CBC, HEPATIC #### [address] Mean Corpuscular HGB Conc 34.4 g/dL Normal 32.5-35.6 [facility] Comment on above: Performed By: #### C MP, LIPASE, CBC, HEPATIC #### [address] Monocytes (Bld) [#/Vol] 0.6 10*3/uL Normal 0.0-0.8 [facility] Comment on above: Performed By: #### C MP, LIPASE, CBC, HEPATIC #### [facility] [address] [place] [address] [place] Monocytes/100 WBC (Bld) 14.65 % Normal 0.00-20.00 [facility] Comment on above: Performed By: #### C MP, LIPASE, CBC, HEPATIC #### [address] Monocytes/100 WBC (Bld) 4.7 % Normal . [facility] Comment on above: Performed By: #### C MP, LIPASE, CBC, HEPATIC #### [address] Neutrophils (Bld) [#/Vol] 10.2 10*3/uL High 1.8-7.7 [facility] Comment on above: Performed By: #### C MP, LIPASE, CBC, HEPATIC #### [place] [address] [place] Neutrophils/100 WBC (Bld) 81.8 % Normal . [facility] Comment on above: Performed By: #### C MP, LIPASE, CBC, HEPATIC #### [place] [address] [place] NRBC% 0.1 /100{WBC} Normal 0-0.5 [facility] Comment on above: Performed By: #### C MP, LIPASE, CBC, HEPATIC #### [place] [address] [place] Platelet mean volume (Bld) [Entitic vol] 8.6 fL Normal 6.6-10.1 [facility] Comment on above: Performed By: #### C MP, LIPASE, CBC, HEPATIC #### [place] [address] [place] Platelets (Bld) [#/Vol] 295 10*3/uL Normal 150-450 [facility] Comment on above: Performed By: #### C MP, LIPASE, CBC, HEPATIC #### [place] [address] [place] RBC (Bld) [#/Vol] 5.24 10*6/uL Normal 3.90-5.60 [facility] Comment on above: Performed By: #### C MP, LIPASE, CBC, HEPATIC #### [address] WBC (Bld) [#/Vol] 12.5 10*3/uL High 4.1-10.5 [facility] Comment on above: Performed By: #### C MP, LIPASE, CBC, HEPATIC #### [address] Comprehensive Metabolic Pane brice 05-30-2024 Albumin [Mass/Vol] 4.5 g/dL Normal 3.5-5.7 [facility] Comment on above: Performed By: #### C MP, LIPASE, CBC, HEPATIC #### [address] Albumin/Globulin [Mass ratio] 1.4 {ratio} Normal [facility] Comment on above: Performed By: #### C MP, LIPASE, CBC, HEPATIC #### [address] ALP [Catalytic activity/Vol] 83 U/L Normal 34-104 [facility] Comment on above: Performed By: #### C MP, LIPASE, CBC, HEPATIC #### [address] ALT [Catalytic activity/Vol] 22 U/L Normal 7-52 [facility] Comment on above: Performed By: #### C MP, LIPASE, CBC, HEPATIC #### [address] Anion gap [Moles/Vol] 10.0 mmol/L Normal 6.0-15.0 [facility] Comment on above: Performed By: #### C MP, LIPASE, CBC, HEPATIC #### [address] AST [Catalytic activity/Vol] 22 U/L Normal 13-39 [facility] Comment on above: Performed By: #### C MP, LIPASE, CBC, HEPATIC #### [address] Bilirubin [Mass/Vol] 0.7 mg/dL Normal 0.3-1.0 [facility] Comment on above: Performed By: #### C MP, LIPASE, CBC, HEPATIC #### [address] Calcium [Mass/Vol] 9.3 mg/dL Normal 8.6-10.3 [facility] Comment on above: Performed By: #### C MP, LIPASE, CBC, HEPATIC #### [address] Chloride [Moles/Vol] 104 mmol/L Normal 98-107 [facility] Comment on above: Performed By: #### C MP, LIPASE, CBC, HEPATIC #### [address] CO2 [Moles/Vol] 28.9 mmol/L Normal 21.0-31.0 [facility] Comment on above: Performed By: #### C MP, LIPASE, CBC, HEPATIC #### [address] Creatinine [Mass/Vol] 0.91 mg/dL Normal 0.70-1.30 [facility] Comment on above: Performed By: #### C MP, LIPASE, CBC, HEPATIC #### [address] Creatinine Clr Calc Pharmacy 159.47 Normal [facility] Comment on above: Performed By: #### C MP, LIPASE, CBC, HEPATIC #### [address] GFR/1.73 sq M.predicted MDRD (S/P/Bld) [Vol rate/Area] mL/min/{1.73_m2} Normal [facility] Comment on above: Performed By: #### C MP, LIPASE, CBC, HEPATIC #### [address] Globulin (S) [Mass/Vol] 3.2 g/dL Normal [facility] Comment on above: Performed By: #### C MP, LIPASE, CBC, HEPATIC #### [address] Glucose [Mass/Vol] 128 mg/dL High 70-100 [facility] Comment on above: Result Comment: [facility] Glucose Reference Range is dependent on time and content of last meal. Glucose of more than 200 mg/dL in a nonstressed, ambulatory subject supports the diagnosis of Diabetes Mellitus. ADA recommended reference range Performed By: #### C MP, LIPASE, CBC, HEPATIC #### [address] Potassium [Moles/Vol] 3.9 mmol/L Normal 3.5-5.1 [facility] Comment on above: Performed By: #### C MP, LIPASE, CBC, HEPATIC #### [address] Protein [Mass/Vol] 7.7 g/dL Normal 6.4-8.9 [facility] Comment on above: Performed By: #### C MP, LIPASE, CBC, HEPATIC #### [address] Sodium [Moles/Vol] 139 mmol/L Normal 136-145 [facility] Comment on above: Performed By: #### C MP, LIPASE, CBC, HEPATIC #### [address] Urea nitrogen [Mass/Vol] 10 mg/dL Normal 7-25 [facility] Comment on above: Performed By: #### C MP, LIPASE, CBC, HEPATIC #### [place] [address] [place] Creatinine [Mass/volume] in Serum or PlasmaOrdered By: Karol Tovar on 05-30-2024 Creatinine [Mass/Vol] Creatinine [Mass/volume] in Serum or Plasma 0.70-1.30 [facility] Dipstick and Microscopicon 0 05-30-2024 Appearance (U) Cloudy Critically abnormal Clear [facility] Comment on above: Order Comment: Name Collection Type:: Clean-Voided Midstream Performed By: #### A DDONUAAURELIO COFFEYU #### [address] Bacteria,Urine None Seen Normal None Seen [facility] Comment on above: Order Comment: Name Collection Type:: Clean-Voided Midstream Performed By: #### A DDONUAPLUS, CUU #### [address] Bilirubin,Urine Negative Normal Negative [facility] Comment on above: Order Comment: Name Collection Type:: Clean-Voided Midstream Performed By: #### A DDONUAPLUS, CUU #### [address] Color (U) Light-Red [place] Critically abnormal Yellow [facility] Comment on above: Order Comment: Name Collection Type:: Clean-Voided Midstream Performed By: #### A DDONUAPLUS, CUU #### [address] Glucose Ql (U) Normal Normal Normal [facility] Comment on above: Order Comment: Name Collection Type:: Clean-Voided Midstream Performed By: #### A DDONUAPLUS, CUU #### [address] Hyaline Casts,Urine None Normal 0-8 [facility] Comment on above: Order Comment: Name Collection Type:: Clean-Voided Midstream Performed By: #### A DDONUAPLUS, CUU #### [place] [address] [place] Ketones Ql (U) Trace High Negative [facility] Comment on above: Order Comment: Name Collection Type:: Clean-Voided Midstream Performed By: #### A DDONUAPLUS, CUU #### [address] Leukocyte esterase Test strip Ql (U) 1+ High Negative [facility] Comment on above: Order Comment: Name Collection Type:: Clean-Voided Midstream Performed By: #### A DDONUAPLUS, CUU #### [place] [address] [place] Mucus,Urine 4+ Critically abnormal [facility] Comment on above: Order Comment: Name Collection Type:: Clean-Voided Midstream Result Comment: PERF ORMED BY: [place] [address] PATHOLOGIST FINANCIAL PLANNING ANALYST CHICO UGALDE M.D. Performed By: #### A DDONUAPLUS, CUU #### [place] [address] [place] Nitrite,Urine Negative Normal Negative [facility] Comment on above: Order Comment: Name Collection Type:: Clean-Voided Midstream Performed By: #### A DDONUAPLUS, CUU #### [address] Occult Blood,Urine 3+ High Negative [facility] Comment on above: Order Comment: Name Collection Type:: Clean-Voided Midstream Result Comment: PERF ORMED BY: [place] [address] PATHOLOGIST FINANCIAL PLANNING ANALYST CHICO UGALDE M.D. Performed By: #### A DDONUAPLUS, CUU #### [address] pH (U) 5.5 [pH] Normal 5.0-9.0 [facility] Comment on above: Order Comment: Name Collection Type:: Clean-Voided Midstream Performed By: #### A DDONUAPLUS, CUU #### [address] Protein (U) [Mass/Vol] 50 mg/dL High Negative [facility] Comment on above: Order Comment: Name Collection Type:: Clean-Voided Midstream Performed By: #### A DDONUAPLUS, CUU #### [place] [address] [place] RBC,Urine Innumerable High 0-4 [facility] Comment on above: Order Comment: Name Collection Type:: Clean-Voided Midstream Performed By: #### A DDONUAPLUS, CUU #### [facility] [address] Specificy [place],Urine 1.022 Normal 1.001-1.030 [facility] Comment on above: Order Comment: Name Collection Type:: Clean-Voided Midstream Performed By: #### A DDONUAPLUS, CUU #### [facility] [address] [place] [address] Squamous Epithelial Cell,Urine 1-2 Normal 0-2 [facility] Comment on above: Order Comment: Name Collection Type:: Clean-Voided Midstream Performed By: #### A DDONUAPLUS, CUU #### [address] Urobilinogen,Urine Normal Normal Normal [facility] Comment on above: Order Comment: Name Collection Type:: Clean-Voided Midstream Performed By: #### A DDONUAPLUS, CUU #### [address] WBC,Urine 50-100 High 0-4 [facility] Comment on above: Order Comment: Name Collection Type:: Clean-Voided Midstream Performed By: #### A DDONUAPLUS, CUU #### [address] Eosinophils Auto (Bld) [#/Vo l]Ordered By: Karol Tovar on 05-30-2024 Eosinophils (Bld) [#/Vol] Automated eosinophil count 0.0-0.45 [facility] Eosinophils/100 WBC Auto (Bl d)Ordered By: Karol Tovar on 05-30-2024 Eosinophils/100 WBC (Bld) Automated eosinophil % . [facility] Epithelial cells.squamous [# /area] in Urine sediment by Automated countOrdered By: Karol Tovar on 05-30-2024 Epithelial cells.squamous Auto (Urine sed) [#/Area] Epithelial cells.squamous [#/area] in Urine sediment by Automated count 0-2 [facility] Erythrocyte distribution wid th Auto (RBC) [Ratio]Ordered By: Karol Tovar on 05-30-2024 Erythrocyte distribution width (RBC) [Ratio] Erythrocyte distribution width [Ratio] by Automated count 12.0-14.8 [facility] Erythrocytes [#/area] in Uri ne sediment by Automated countOrdered By: Karol Tovar on 05-30-2024 RBC Auto (Urine sed) [#/Area] Erythrocytes [#/area] in Urine sediment by Automated count High 0-4 [facility] Globulin Calc (S) [Mass/Vol] Ordered By: Karol Tovar on 05-30-2024 Globulin (S) [Mass/Vol] Serum globulin measurement by calculation (mass/volume) [facility] Glucose [Mass/volume] in Ser um or PlasmaOrdered By: Karol Tovar on 05-30-2024 Glucose [Mass/Vol] Glucose [Mass/volume ] in Serum or Plasma High 70-100 [facility] Comment on above: ADA recommended refe rence rangeRandom Glucose Reference Range is dependent on time and content of last meal. Glucose of more than 200 mg/dL in a nonstressed, ambulatory subject supports the diagnosis of Diabetes Mellitus. Glucose [Mass/volume] in Uri ne by Test stripOrdered By: Karol Tovar on 05-30-2024 Glucose Test strip (U) [Mass/Vol] Glucose [Mass/volume] in Urine by Test strip Normal [facility] Hematocrit Auto (Bld) [Volum e fraction]Ordered By: Karol Tovar on 05-30-2024 Hematocrit (Bld) [Volume fraction] Hematocrit [Volume Fraction] of Blood by Automated count 38.8-50.0 [facility] Hemoglobin Test strip Ql (U) Ordered By: Karol Tovar on 05-30-2024 Hemoglobin Ql (U) Hemoglobin [Presence ] in Urine by Test strip High Negative [facility] Hemoglobin [Mass/volume] in BloodOrdered By: Karol Tovar on 05-30-2024 Hemoglobin (Bld) [Mass/Vol] Hemoglobin [Mass/volume] in Blood 13.0-17.0 [facility] Hepatic Panelon 05-30-2024 Bilirubin,Indirect 0.6 mg/dL Normal [facility] Comment on above: Performed By: #### C MP, LIPASE, CBC, HEPATIC #### [facility] [address] Bilirubin.indirect [Mass/Vol] 0.10 mg/dL Normal 0.03-0.18 [facility] Comment on above: Performed By: #### C MP, LIPASE, CBC, HEPATIC #### [facility] [address] Hyaline casts [#/area] in Ur ine sediment by Automated countOrdered By: Karol Tovar on 05-30-2024 Hyaline casts Auto (Urine sed) [#/Area] Hyaline casts [#/area] in Urine sediment by Automated count 0-8 [facility] Ketones Test strip Ql (U)Ord ered By: Karol Tovar on 05-30-2024 Ketones Ql (U) Ketones [Presence] i n Urine by Test strip High Negative [facility] Leukocyte esterase [Presence ] in Urine by Test stripOrdered By: Karol Tovar on 05-30-2024 Leukocyte esterase Test strip Ql (U) Leukocyte esterase [Presence] in Urine by Test strip High Negative [facility] Leukocytes [#/area] in Urine sediment by Automated countOrdered By: Karol Tovar on 05-30-2024 WBC Auto (Urine sed) [#/Area] Leukocytes [#/area] in Urine sediment by Automated count High 0-4 [facility] Leukocytes [#/volume] correc madi for nucleated erythrocytes in Blood by Automated counOrdered By: Karol Tovar on 05-30-2024 WBC corrected for nucl RBC Auto (Bld) [#/Vol] Leukocytes [#/volume] corrected for nucleated erythrocytes in Blood by Automated coun High 4.1-10.5 [facility] Lipaseon 05-30-2024 Lipase [Catalytic activity/Vol] 21.0 U/L Normal 11.0-82.0 [facility] Comment on above: Result Comment: PERF ORMED BY: [place] [address] PATHOLOGIST FINANCIAL PLANNING ANALYST CHICO UGALDE M.D. Performed By: #### C MP, LIPASE, CBC, HEPATIC #### [address] [address] [facility] Lipase [Enzymatic activity/v olume] in Serum or PlasmaOrdered By: Karol Tovar on 05-30-2024 Lipase [Catalytic activity/Vol] Lipase [Enzymatic activity/volume] in Serum or Plasma 11.0-82.0 [facility] Lymphocytes Auto (Bld) [#/Vo l]Ordered By: Karol Tovar on 05-30-2024 Lymphocytes (Bld) [#/Vol] Lymphocytes [#/volume] in Blood by Automated count 1.00-4.8 [facility] Lymphocytes/100 WBC Auto (Bl d)Ordered By: Karol Tovar on 05-30-2024 Lymphocytes/100 WBC (Bld) Lymphocytes/100 leukocytes in Blood by Automated count . [facility] MCH Auto (RBC) [Entitic mass ]Ordered By: Karol Tovar on 05-30-2024 MCH (RBC) [Entitic mass] MCH [Entitic mass] by Automated count 27.5-35.2 [facility] MCHC Auto (RBC) [Mass/Vol]Or dered By: Karol Tovar on 05-30-2024 MCHC (RBC) [Mass/Vol] MCHC [Mass/volume] by Automated count 32.5-35.6 [facility] MCV Auto (RBC) [Entitic vol] Ordered By: Karol Tovar on 05-30-2024 MCV (RBC) [Entitic vol] MCV [Entitic volume] by Automated count 83.5-101 [facility] Monocyte distribution width [Entitic volume] in Blood by AutomatedOrdered By: Karol Tovar on 05-30-2024 Monocyte distribution width Auto (Bld) [Entitic vol] Monocyte distribution width [Entitic volume] in Blood by Automated 0.00-20.00 [facility] Monocytes Auto (Bld) [#/Vol] Ordered By: Karol Tovar on 05-30-2024 Monocytes (Bld) [#/Vol] Automated blood monocyte count 0.0-0.8 [facility] Monocytes/100 WBC Auto (Bld) Ordered By: Karol Tovar on 05-30-2024 Monocytes/100 WBC (Bld) Automated monocyte % . [facility] Mucus [Presence] in Urine by AutomatedOrdered By: Karol Tovar on 05-30-2024 Mucus Auto Ql (U) Mucus [Presence] in Urine by Automated Abnormal [facility] Neutrophils Auto (Bld) [#/Vo l]Ordered By: Karol Tovar on 05-30-2024 Neutrophils (Bld) [#/Vol] Neutrophils [#/volume] in Blood by Automated count High 1.8-7.7 [facility] Neutrophils/100 WBC Auto (Bl d)Ordered By: Karol Tovar on 05-30-2024 Neutrophils/100 WBC (Bld) Automated neutrophil % . [facility] Nitrite Test strip Ql (U)Ord ered By: Karol Tovar on 05-30-2024 Nitrite Ql (U) Nitrite [Presence] i n Urine by Test strip Negative [facility] No Panel InformationOrdered By: Karol Tovar on 05-30-2024 Estimated GFR (CKD-EPI) > 60.0 mL/Min [facility] Pharmacy Creatinine Clearance (Chem 159.47 [facility] Nucleated erythrocytes [Pres ence] in Blood by Automated countOrdered By: Karol Tovar on 05-30-2024 Nucleated RBC Auto Ql (Bld) Nucleated erythrocytes [Presence] in Blood by Automated count 0-0.5 [facility] Platelet mean volume Auto (B ld) [Entitic vol]Ordered By: Karol Tovar on 05-30-2024 Platelet mean volume (Bld) [Entitic vol] Platelet mean volume [Entitic volume] in Blood by Automated count 6.6-10.1 [facility] Platelets Auto (Bld) [#/Vol] Ordered By: Karol Tovar on 05-30-2024 Platelets (Bld) [#/Vol] Platelets [#/volume] in Blood by Automated count 150-450 [facility] Potassium [Moles/volume] in Serum or PlasmaOrdered By: Karol Tovar on 05-30-2024 Potassium [Moles/Vol] Potassium [Moles/volume] in Serum or Plasma 3.5-5.1 [facility] Protein Test strip (U) [Mass /Vol]Ordered By: Karol Tovar on 05-30-2024 Protein (U) [Mass/Vol] Protein [Mass/vol ume] in Urine by Test strip High Negative [facility] Protein [Mass/volume] in Ser um or PlasmaOrdered By: Karol Tovar on 05-30-2024 Protein [Mass/Vol] Protein [Mass/volume ] in Serum or Plasma 6.4-8.9 [facility] RBC Auto (Bld) [#/Vol]Ordere d By: Karol Tovar on 05-30-2024 RBC (Bld) [#/Vol] Erythrocytes [#/volu me] in Blood by Automated count 3.90-5.60 [facility] Serum or plasma albumin/glob ulin mass ratioOrdered By: Karol Tovar on 05-30-2024 Albumin/Globulin [Mass ratio] Serum or plasma albumin/globulin mass ratio [facility] Serum or plasma anion gap de terminationOrdered By: Karol Tovar on 05-30-2024 Anion gap [Moles/Vol] Serum or plasma an ion gap determination 6.0-15.0 [facility] Serum or plasma non-glucuron idated bilirubin measurement (mass/volume)Ordered By: PROVIDER TEMP on 05-30-2024 Bilirubin.indirect [Mass/Vol] Serum or plasma non-glucuronidated bilirubin measurement (mass/volume) [facility] Sodium [Moles/volume] in Ser um or PlasmaOrdered By: Karol Tovar on 05-30-2024 Sodium [Moles/Vol] Sodium [Moles/volume ] in Serum or Plasma 136-145 [facility] Specific gravity Test strip (U) [Rel density]Ordered By: Karol Tovar on 05-30-2024 Specific gravity (U) [Rel density] Specific gravity of Urine by Test strip 1.001-1.030 [facility] Urea nitrogen [Mass/volume] in Serum or PlasmaOrdered By: Karol Tovar on 05-30-2024 Urea nitrogen [Mass/Vol] Urea nitrogen [Mass/volume] in Serum or Plasma 7-25 [facility] Urine Cultureon 05-30-2024 Bacteria identified Cx Nom (U) No Growth 2 Days PERFORMED BY: [facility] [address] [place] [address] PATHOLOGIST FINANCIAL PLANNING ANALYST CHICO UGALDE M.D. Normal [facility] Comment on above: Performed By: #### A PAM, AURELIOU #### [facility] [address] Urobilinogen Test strip (U) [Mass/Vol]Ordered By: Karol Tovar on 05-30-2024 Urobilinogen (U) [Mass/Vol] Urobilinogen [Mass/volume] in Urine by Test strip Normal [facility] WBC Auto (Bld) [#/Vol]Ordere d By: Karol Tovar on 05-30-2024 WBC (Bld) [#/Vol] Leukocytes [#/volume ] in Blood by Automated count High 4.1-10.5 [facility] pH Test strip (U)Ordered By: Karol Tovar on 05-30-2024 pH (U) pH of Urine by Test strip 5.0-9.0 [facility] Quick Strepon 08-05-2021 S. pyogenes Org specific cx Ql (Throat) Positive [facility] [employer] Other Quick Strep [employer] [facility] [employer] Other CT FLANK WO IVCONon 02-21-[address] FLANK WO IVCON * * *Final Report* * * DATE OF EXAM: Feb 20 2021 8:25AM [facility] 0529 - CT FLANK WO IVCON / PROCEDURE REASON: History of nephrolithiasis * * * * Physician Interpretation * * * * EXAMINATION: CT ABDOMEN AND PELVIS WITHOUT IV CONTRAST (Renal stone protocol) CLINICAL HISTORY: Unspecified flank pain. Hematuria. TECHNIQUE: Non-contrast imaging of the abdomen and pelvis was performed through the urinary tract. Study performed without intravenous or oral contrast to evaluate for urinary tract calculus. MQ: [id number] Contrast: IV contrast: None Oral contrast: None CT Radiation dose: Integrated dose-length product (DLP) for this visit = 1640 mGy*cm. CT Dose Reduction Employed: Automated exposure control (AEC) COMPARISON: 03/30/2019 RESULT: Limitations: Unenhanced imaging is limited for the evaluation of some renal and other intra-abdominal and pelvic pathology. Urinary Tract: Right kidney and ureter: No calculus. No hydronephrosis. No finding to suggest cyst or mass in the unenhanced kidney. Left kidney and ureter: There is a 3.5 mm calculus in the lower pole the left kidney series 2 image 72. No hydronephrosis. No finding to suggest cyst or mass in the unenhanced kidney. Bladder: No calculus. Abdomen and Pelvis: Liver: Fatty infiltration of the liver is noted Biliary: The gallbladder is nondistended and appears grossly unremarkable Spleen: No splenomegaly. Pancreas: Unremarkable. Adrenals: Normal. GI Tract: No bowel dilation. The appendix appears unremarkable Lymph Nodes: No lymphadenopathy. Mesentery/peritoneum: No ascites. Vasculature: The abdominal aorta is normal in caliber. Atherosclerotic calcifications are visualized Pelvis: No mass or ascites. Bladder appears grossly unremarkable Bones and Soft Tissues: Mild degenerative changes are seen in the spine Lower thorax: No additional findings Java Application Developer (topogram) images: No additional findings. IMPRESSION: Lower pole left renal calculus with no hydronephrosis seen. Fatty infiltration of the liver Discharge Door Operator: YULI Transcribe Date/Time: Feb 20 2021 11:20A Dictated by : JOVANY VICTOR MD This examination was interpreted and the report reviewed and electronically signed by: JOVANY VICTOR MD on Feb 20 2021 11:24AM EST [id number] [facility] Vital Signs Date Time Vital Sign Value Performing Clinician Facility 06-19-2024 10:32-0500 Diastolic blood pressure 102 mm[Hg] Joe PARRISH [facility] 06-19-2024 10:32-0500 Mean blood pressure 121 mm[Hg] Joe PARRISH [facility] 06-19-2024 10:32-0500 Systolic blood pressure 158 mm[Hg] Joe PARRISH [facility] 06-19-2024 10:25-0500 Blood Pressure Location Joe PARRISH [facility] 06-19-2024 10:25-0500 Diastolic blood pressure 131 mm[Hg] Joe PARRISH [facility] 06-19-2024 10:25-0500 Heart rate 85 /min Oje PARRISH [facility] 06-19-2024 10:25-0500 Systolic blood pressure 157 mm[Hg] Joe PARRISH [facility] 06-05-2024 14:16-0500 Diastolic blood pressure 90 mm[Hg] Joe PARRISH [facility] 06-05-2024 14:16-0500 Mean blood pressure 106 mm[Hg] Joe PARRISH [facility] 06-05-2024 14:16-0500 Systolic blood pressure 138 mm[Hg] Joe PARRISH [facility] 06-05-2024 14:04-0500 Blood Pressure Location Joe PARRISH [facility] 06-05-2024 14:04-0500 Body temperature 98.78 [degF] Joe PARRISH [facility] 06-05-2024 14:04-0500 Diastolic blood pressure 126 mm[Hg] Joe PARRISH [facility] 06-05-2024 14:04-0500 Heart rate 85 /min Joe PARRISH [facility] 06-05-2024 14:04-0500 Systolic blood pressure 172 mm[Hg] Joe PARRISH [facility] 05-31-2024 01:50-0500 Diastolic blood pressure 91 mm[Hg] PHYSICIAN NO [facility] 05-31-2024 01:50-0500 Heart rate 75 /min PHYSICIAN NO [facility] 05-31-2024 01:50-0500 Respiratory rate 16 /min PHYSICIAN NO [facility] 05-31-2024 01:50-0500 SaO2% (BldA) [Mass fraction] 98 % PHYSICIAN NO [facility] 05-31-2024 01:50-0500 Systolic blood pressure 159 mm[Hg] PHYSICIAN NO [facility] 05-30-2024 20:07-0500 Body height 182.88 cm PHYSICIAN NO [facility] 05-30-2024 20:07-0500 Body temperature 98 [degF] PHYSICIAN NO [facility] 05-30-2024 20:07-0500 Body weight 155.7 kg PHYSICIAN NO [facility] 08-14-2021 13:50-0400 Body height 182.88 cm Adelita Navas Other [facility] [employer] Other 08-14-2021 13:50-0400 Body mass index (BMI) [Ratio] 40.68 kg/m2 Adelita Navas Other [employer] Other 08-14-2021 13:50-0400 Body temperature 98.7 [degF] Adelita Navas Other [employer] Other 08-14-2021 13:50-0400 Body weight 136.08 kg Adelita Navas Other [employer] Other 08-14-2021 13:50-0400 Respiratory rate 18 /min Adelita Navas Other [employer] Other 08-14-2021 13:50-0400 SaO2% (BldA) [Mass fraction] 98 % Adelita Rollins [employer] Other 08-05-2021 13:10-0400 Body height 182.88 cm Lashay White Other [employer] Other 08-05-2021 13:10-0400 Body mass index (BMI) [Ratio] 40.68 kg/m2 Lashay White Other [employer] Other 08-05-2021 13:10-0400 Body temperature 97.7 [degF] Lashay White Other [employer] Other 08-05-2021 13:10-0400 Body weight 136.08 kg Lashay White Other [employer] Other 08-05-2021 13:10-0400 Respiratory rate 18 /min Lashay White Other [employer] Other 08-05-2021 13:10-0400 SaO2% (BldA) [Mass fraction] 98 % Lashay White Other [employer] Other Encounters Encounter Date Encounter Type Care Provider Facility Start: 06-19-2024 End: 06-19-2024 ambulatory Joe PARRISH Facility:[facility] Start: 06-19-2024 End: 06-19-2024 Patient encounter procedure Joe PARRISH [facility] Start: 06-14-2024 End: 06-14-2024 Lab Drop off SYLVAIN GARDNER [facility] Start: 06-14-2024 End: 06-14-2024 ambulatory SYLVAIN GARDNER Facility:[facility] Start: 06-14-2024 End: 06-14-2024 Patient encounter procedure Joe PARRISH [facility] Start: 06-05-2024 End: 06-05-2024 ambulatory Joe R PARRISH Facility:[facility] Start: 06-05-2024 End: 06-05-2024 Patient encounter procedure Joe PARRISH [facility] Start: 05-30-2024 End: 05-31-2024 Emergency department patient visit PHYSICIAN NO FAMILY [facility] Work Phone: Start: 08-14-2021 End: 08-14-2021 ambulatory Adelita Navas Other [employer] Other Start: 08-14-2021 Office outpatient visit 15 minutes Adelita Navas [facility] [address] Start: 08-05-2021 End: 08-05-2021 ambulatory Lashay White Other [employer] Other Start: 08-05-2021 Office outpatient ne w 30 minutes Lashay White [facility] [address] Procedures Date Procedure Procedure Detail Performing Clinician Start: 05-30-2024 CT of abdomen and pe lvis without contrast PHYSICIAN NO FAMILY Cyst (disorder) Joe MARQUEZ Plan of Treatment Date Care Activity Detail Author Start: 05-30-2024 Urine culture [facility] Start: 05-30-2024 Bacteria identified in Urine by Culture Urine Culture [facility] Patient Education How to Strain Your Urine Urinary tract infection in adults - ED discharge instructions Kidney stones in adults - ED discharge instructions [facility] Work Phone: Patient referral [facility] Work Phone: Immunizations Immunization Date Immunization Notes Care Provider Ivania croft 02-20-2021 SARS-CoV-2 (COVID-19 ) Ad26 vaccine, recombinant oJe PARRISH [facility] NEGATED: Highlighted row has not occurred!06-05-2024 influenza virus vaccine, unspecified formulation Joe PARRISH [facility] Payers Date Payer Category Payer Self-pay 2015 [facility] [id number] 1979 Unknown [id number] 1979 Unknown [id number] 27 1979 Unknown [id number] 1979 Unknown [id number] 1979 Unknown [id number] 1979 Unknown [id number] 1979 Unknown [id number] 27 Unknown [facility] [id number] Unknown [id number] 31 Social History Date Type Detail Facility Sex Assigned At [facility] Start: 05[facility]30[facility] Start: 05-31-2024 Sex Male (finding) [facility] Start: 1980 Sex Assigned At Male [facility] Start: 06-05-2024 End: 06-19-2024 Tobacco smoking status Ex-smoker (finding) [facility] Tobacco smoking status Never [facility] Functional Status Date Assessment Result Facility 06-19-2024 Functional Status N/A [facility] 06-05-2024 Functional Status N/A [facility] Clinical Notes 02-20-2021 to 06-19-2024 Note Date & Type Note Facility 06-19-2024 Hospital Discharge instructions Patient Education 06/19/2024 10:56:26 ESWL for Kidney Stones, Care After ESWL for Kidney Stones, Care After The following information offers guidance on how to care for yourself after your procedure. Your health care provider may also give you more specific instructions. If you have problems or questions, contact your health care provider. What can I expect after the procedure? After the procedure, it is common to have: Some blood in your urine. This should only last for a few days. Soreness in your back, sides, or upper abdomen for a few days. Blotches or bruises on the area where the shock wave entered the skin. Pain, discomfort, or nausea when pieces (fragments) of the kidney stone move through the tube that carries urine from the kidney to the bladder (ureter). Fragments may pass soon after the procedure. They may also take up to 4 8 weeks to pass. ?If you have severe pain or nausea, contact your health care provider. This may be caused by a large stone that was not broken up enough. This may mean that you need more treatment. Some pain or discomfort during urination. Some pain or discomfort in the lower abdomen or at the base of the penis. Follow these instructions at home: Medicines Take taez-uoj-uztilsk and prescription medicines only as told by your health care provider. If you were prescribed antibiotics, take them as told by your health care provider. Do not stop using the antibiotic even if you start to feel better. Ask your health care provider if the medicine prescribed to you: ?Requires you to avoid driving or using machinery. ?Can cause constipation. You may need to take these actions to prevent or treat constipation: ?Take wyhy-wyj-rqfnafl or prescription medicines. ?Eat foods that are high in fiber, such as beans, whole grains, and fresh fruits and vegetables. ?Limit foods that are high in fat and processed sugars, such as fried or sweet foods. Eating and drinking Follow instructions from your health care provider about what you may eat and drink. You may be told to: ?Reduce how much salt (sodium) you eat or drink. Check ingredients and nutrition facts on packaged foods and drinks to see how much sodium they contain. ?Reduce how much meat you eat. Drink enough fluid to keep your urine pale yellow. This can help you pass any pieces of the stone that are left. It can also prevent new stones from forming. Eat plenty of fresh fruits and vegetables. Eat the recommended amount of calcium for your age and gender. Ask your health care provider how much calcium you should have. Activity Get plenty of rest as told by your health care provider. Avoid sitting for a long time without moving. Get up to take short walks every 1 2 hours. This is important to improve blood flow and breathing. Ask for help if you feel weak or unsteady. Your health care provider may tell you to lie in a certain position (postural drainage) and tap firmly (percuss) over your kidney area to help stone fragments pass. Follow instructions as told by your health care provider. Return to your normal activities as told by your health care provider. Ask your health care provider what activities are safe for you. Most people can resume normal activities 1 2 days after the procedure. General instructions If told, strain all urine through the strainer that was provided by your health care provider. ?Keep all fragments for your health care provider to see. Any stones that are found may be sent to a medical lab for examination. The stone may be as small as a grain of salt. Keep all follow-up visits. This is important if you had a stent placed because it may need to stay in place for a few weeks. Ask your health care provider when the stent will be removed. Contact a health care provider if: You have a fever or chills. You have severe nausea that leads to persistent vomiting. You have any of these urinary symptoms: ?Increased blood or blood clots in the urine. ?Urine that smells bad or unusual. ?A strong urge to urinate after emptying your bladder. ?Pain or burning with urination that does not go away. ?A continued need to urinate more often than usual. You have a stent, and it comes out. Get help right away if: You have severe pain in your back, sides, or upper abdomen. You faint. You have any of these urinary symptoms: ?Severe pain while urinating. ?More blood in your urine, or blood in your urine when you did not have any before. ?Blood clots in your urine larger than 1 inch (2.5 cm) in size. ?You pass only a small amount of urine when you urinate or are unable to pass any urine. This information is not intended to replace advice given to you by your health care provider. Make sure you discuss any questions you have with your health care provider. Document Revised: 08/04/2022 Document Reviewed: 08/04/2022 [employer] Patient Education 2023 [employer]. 06/19/2024 10:56:25 ESWL for Kidney Stones ESWL for Kidney Stones Extracorporeal shock wave lithotripsy (ESWL) is a treatment that can help break up kidney stones that are too large to pass on their own. This is a nonsurgical procedure that breaks up a kidney stone with shock waves. These shock waves pass through your body and focus on the kidney stone. They cause the kidney stone to break into smaller pieces (fragments) while it is still in the urinary tract. The fragments of stone can pass more easily out of your body in the urine. Tell a health care provider about: Any allergies you have. All medicines you are taking, including vitamins, herbs, eye drops, creams, and huck-kjj-qzexpkz medicines. Any problems you or family members have had with anesthetic medicines. Any bleeding problems you have. Any surgeries you have had. Any medical conditions you have. Whether you are or may be . What are the risks? Your health care provider will talk with you about risks. These may include: Infection. Bleeding from the kidney. Bruising of the kidney or skin. Scarring of the kidney. This can lead to: ?Increased blood pressure. ?Poor kidney function. ?Return (recurrence) of kidney stones. Damage to other structures or organs. This may include the liver, colon, spleen, or pancreas. Blockage (obstruction) of the tube that carries urine from the kidney to the bladder (ureter). Failure of the kidney stone to break into fragments. What happens before the procedure? When to stop eating and drinking Follow instructions from your health care provider about what you may eat and drink. These may include: 8 hours before your procedure ?Stop eating most foods. Do not eat meat, fried foods, or fatty foods. ?Eat only light foods, such as toast or crackers. ?All liquids are okay except energy drinks and alcohol. 6 hours before your procedure ?Stop eating. ?Drink only clear liquids, such as water, clear fruit juice, black coffee, plain tea, and sports drinks. ?Do not drink energy drinks or alcohol. 2 hours before your procedure ?Stop drinking all liquids. ?You may be allowed to take medicines with small sips of water. If you do not follow your health care provider's instructions, your procedure may be delayed or canceled. Medicines Ask your health care provider about: Changing or stopping your regular medicines. These include any diabetes medicines or blood thinners you take. Taking medicines such as aspirin and ibuprofen. These medicines can thin your blood. Do not take them unless your health care provider tells you to. Taking wlsw-zwc-sgqhibk medicines, vitamins, herbs, and supplements. Tests You may have tests, such as: Blood tests. Urine tests. Imaging tests. This may include a CT scan. Surgery safety Ask your health care provider: How your surgery site will be marked. What steps will be taken to help prevent infection. These steps may include: ?Washing skin with a soap that kills germs. ?Receiving antibiotics. General instructions If you will be going home right after the procedure, plan to have a responsible adult: ?Take you home from the hospital or clinic. You will not be allowed to drive. ?Care for you for the time you are told. What happens during the procedure? An IV will be inserted into one of your veins. You may be given: ?A sedative. This helps you relax. ?Anesthesia. This will: ?Numb certain areas of your body. ?Make you fall asleep for surgery. A water-filled cushion may be placed behind your kidney or on your abdomen. In some cases, you may be placed in a tub of lukewarm water. Your body will be positioned in a way that makes it easier to target the kidney stone. An X-ray or ultrasound exam will be done to locate your stone. Shock waves will be aimed at the stone. If you are awake, you may feel a tapping sensation as the shock waves pass through your body. A small mesh tube (stent) may be placed in your ureter. This will help keep urine flowing from the kidney if the fragments of the stone have been blocking the ureter. The stent will be removed at a later time by your health care provider. The procedure may vary among health care providers and hospitals. What happens after the procedure? Your blood pressure, heart rate, breathing rate, and blood oxygen level will be monitored until you leave the hospital or clinic. You may have an X-ray after the procedure to see how many of the kidney stones were broken up. This will also show how much of the stone has passed. If there are still large fragments after treatment, you may need to have a second procedure at a later time. This information is not intended to replace advice given to you by your health care provider. Make sure you discuss any questions you have with your health care provider. Document Revised: 08/04/2022 Document Reviewed: 08/04/2022 [employer] Patient Education 2023 [employer]. 06/19/2024 10:53:37 Laser Therapy for Kidney Stones, Care After Laser Therapy for Kidney Stones, Care After After laser therapy for kidney stones, it is common to have: Pain. A burning feeling when you pee (urinate). Small amounts of blood in your pee (urine). A need to pee a lot. Parts of the kidney stone in your pee. Mild discomfort in your back when you pee. You may have this if you had a small mesh tube (stent) placed during the procedure. Follow these instructions at home: Medicines Take takm-naz-xfyfkei and prescription medicines only as told by your health care provider. If you were prescribed antibiotics, take them as told by your provider. Do not stop using the antibiotic even if you start to feel better. Ask your provider if the medicine prescribed to you: ?Requires you to avoid driving or using machinery. ?Can cause constipation. You may need to take these actions to prevent or treat constipation: ?Drink enough fluid to keep your pee pale yellow. ?Take wwut-rfq-gfvskit or prescription medicines. ?Eat foods that are high in fiber, such as beans, whole grains, and fresh fruits and vegetables. ?Limit foods that are high in fat and processed sugars, such as fried or sweet foods. Activity If you were given a sedative during the procedure, it can affect you for several hours. Do not drive or operate machinery until your provider says that it is safe. Return to your normal activities as told by your provider. Ask your provider what activities are safe for you. General instructions Your provider may recommend that you drink a lot of water for a few hours after your procedure. If you have heart or kidney disease, ask your provider how much you should drink. You may be asked to strain your pee to collect any stone pieces that you pass. Your provider may have these pieces tested. Do not take baths, swim, or use a hot tub until your provider approves. Ask your provider if you may take warm baths to soothe the burning. Keep all follow-up visits. If you have a stent, you will need to go back to your provider to have it removed. Your provider may give you more instructions. Make sure you know what you can and cannot do. Contact a health care provider if: You have pain or a burning feeling that lasts for more than 2 days. You feel nauseous. You vomit more and more often. You have trouble peeing. You have pain that gets worse or does not get better with medicine. You have a fever or shaking chills. Get help right away if: You cannot pee, even when your bladder feels full. You faint. You have chest pain, shortness of breath, or cough up blood. You have: ?Bright red blood or blood clots in your pee. ?Severe pain or discomfort. ?Pain in your abdomen. ?Swelling in your legs. These symptoms may be an emergency. Get help right away. Call 911. Do not wait to see if the symptoms will go away. Do not drive yourself to the hospital. This information is not intended to replace advice given to you by your health care provider. Make sure you discuss any questions you have with your health care provider. Document Revised: 12/02/2022 Document Reviewed: 12/02/2022 [employer] Patient Education 2023 [employer] 06/19/2024 10:53:36 Laser Therapy for Kidney Stones Laser Therapy for Kidney Stones Laser therapy for kidney stones is a procedure to break up rock-like masses that form inside the kidneys (kidney stones). It is done using a device that beams a strong light (laser) on the kidney stones. This breaks the stones up into small pieces. These small pieces may leave your body when you pee (urinate) or may be taken out during the procedure. You may need laser therapy if you have kidney stones that are painful or that are stopping you from being able to pee. Tell a health care provider about: Any allergies you have. All medicines you are taking, including vitamins, herbs, eye drops, creams, and tnpk-jgq-ptcdttv medicines. Any problems you or family members have had with anesthesia. Any bleeding problems you have. Any surgeries you have had. Any medical conditions you have. Whether you are or may be . What are the risks? Your health care provider will talk with you about risks. These may include: Infection. Bleeding. Allergic reactions to medicines. Damage to: ?The part of your body that drains pee (urine) from the bladder (urethra). ?The bladder. ?The tube that connects the bladder to the kidneys (ureter). Urinary tract infection (UTI). Urethral stricture. This is when the urethra is narrowed by scarring. Trouble peeing. Blockage of the kidney. This may be caused by a piece of kidney stone. What happens before the procedure? When to stop eating and drinking Follow instructions from your provider about what you may eat and drink. These may include: 8 hours before the procedure ?Stop eating most foods. Do not eat meat, fried foods, or fatty foods. ?Eat only light foods, such as toast or crackers. ?All liquids are okay except energy drinks and alcohol. 6 hours before the procedure ?Stop eating. ?Drink only clear liquids, such as water, clear fruit juice, black coffee, plain tea, and sports drinks. ?Do not drink energy drinks or alcohol. 2 hours before the procedure ?Stop drinking all liquids. ?You may be allowed to take medicines with small sips of water. If you do not follow your provider's instructions, your procedure may be delayed or canceled. Medicines Ask your provider about: ?Changing or stopping your regular medicines. These include any diabetes medicines or blood thinners you take. ?Taking medicines such as aspirin and ibuprofen. These medicines can thin your blood. Do not take them unless your provider tells you to. ?Taking urqf-uzi-vntvnzi medicines, vitamins, herbs, and supplements. Tests You may have a physical exam before the procedure. You may also have tests done. These may include: ?Imaging tests. ?Blood or pee tests. Surgery safety Ask your provider: ?How your surgery site will be marked. ?What steps will be taken to help prevent infection. These steps may include: ?Removing hair at the surgery site. ?Washing skin with a soap that kills germs. ?Taking antibiotics. General instructions Do not use any products that contain nicotine or tobacco for at least 4 weeks before the procedure. These products include cigarettes, chewing tobacco, and vaping devices, such as e-cigarettes. If you need help quitting, ask your provider. If you will be going home right after the procedure, plan to have a responsible adult: ?Take you home from the hospital or clinic. You will not be allowed to drive. ?Care for you for the time you are told. What happens during the procedure? An IV will be inserted into one of your veins. You will be given: ?A sedative. This helps you relax. ?Anesthesia. This keeps you from feeling pain. It will make you fall asleep for surgery. A tool with a camera on the end (ureteroscope) will be put into your urethra. It will be moved through your bladder to your kidney. It will send pictures to a screen in the operating room. This will show what parts of your kidney need to be treated. A tube will be put through the ureteroscope. It will be moved into your kidney. The laser device will be put into your kidney through the tube. The laser will be used to break up the kidney stones. A tool with a tiny wire basket may be put through the tube into your kidney. This can help remove the small pieces of the kidney stone. A small mesh tube (stent) may be placed to allow your kidney to drain. The tube and ureteroscope will be taken out at the end of the surgery. The procedure may vary among providers and hospitals. What happens after the procedure? Your blood pressure, heart rate, breathing rate, and blood oxygen level will be monitored until you leave the hospital or clinic. If you had a stent placed, it may have a string that will be secured to your skin. This helps your provider remove the stent. You may be given a strainer to collect any stone pieces that you pass in your pee. Your provider may have these tested. This information is not intended to replace advice given to you by your health care provider. Make sure you discuss any questions you have with your health care provider. Document Revised: 12/02/2022 Document Reviewed: 12/02/2022 [employer] Patient Education 2023 [employer] Follow Up Care 06/05/2024 14:43:33 With:YUN GRACE, Joe Leo, URL Address: [facility] [address], [place] [address]- When: Unknown [facility] 06-19-2024 Note Patient Education Nephrology ESWL for Kidney Stones, Care After The following information offers guidance on how to care for yourself after your procedure. Your health care provider may also give you more specific instructions. If you have problems or questions, contact your health care provider. What can I expect after the procedure? After the procedure, it is common to have: ??? Some blood in your urine. This should only last for a few days. ??? Soreness in your back, sides, or upper abdomen for a few days. ??? Blotches or bruises on the area where the shock wave entered the skin. ??? Pain, discomfort, or nausea when pieces (fragments) of the kidney stone move through the tube that carries urine from the kidney to the bladder (ureter). Fragments may pass soon after the procedure. They may also take up to 4?8 weeks to pass. ? If you have severe pain or nausea, contact your health care provider. This may be caused by a large stone that was not broken up enough. This may mean that you need more treatment. ??? Some pain or discomfort during urination. ??? Some pain or discomfort in the lower abdomen or at the base of the penis. Follow these instructions at home: Medicines ??? Take hdej-tzm-gssfrqq and prescription medicines only as told by your health care provider. ??? If you were prescribed antibiotics, take them as told by your health care provider. Do not stop using the antibiotic even if you start to feel better. ??? Ask your health care provider if the medicine prescribed to you: ? Requires you to avoid driving or using machinery. ? Can cause constipation. You may need to take these actions to prevent or treat constipation: ? Take vogg-rir-obesrip or prescription medicines. ? Eat foods that are high in fiber, such as beans, whole grains, and fresh fruits and vegetables. ? Limit foods that are high in fat and processed sugars, such as fried or sweet foods. Eating and drinking ??? Follow instructions from your health care provider about what you may eat and drink. You may be told to: ? Reduce how much salt (sodium) you eat or drink. Check ingredients and nutrition facts on packaged foods and drinks to see how much sodium they contain. ? Reduce how much meat you eat. ??? Drink enough fluid to keep your urine pale yellow. This can help you pass any pieces of the stone that are left. It can also prevent new stones from forming. ??? Eat plenty of fresh fruits and vegetables. ??? Eat the recommended amount of calcium for your age and gender. Ask your health care provider how much calcium you should have. Activity ??? Get plenty of rest as told by your health care provider. ??? Avoid sitting for a long time without moving. Get up to take short walks every 1?2 hours. This is important to improve blood flow and breathing. Ask for help if you feel weak or unsteady. ??? Your health care provider may tell you to lie in a certain position (postural drainage) and tap firmly (percuss) over your kidney area to help stone fragments pass. Follow instructions as told by your health care provider. ??? Return to your normal activities as told by your health care provider. Ask your health care provider what activities are safe for you. Most people can resume normal activities 1?2 days after the procedure. General instructions ??? If told, strain all urine through the strainer that was provided by your health care provider. ? Keep all fragments for your health care provider to see. Any stones that are found may be sent to a medical lab for examination. The stone may be as small as a grain of salt. ??? Keep all follow-up visits. This is important if you had a stent placed because it may need to stay in place for a few weeks. Ask your health care provider when the stent will be removed. Contact a health care provider if: ??? You have a fever or chills. ??? You have severe nausea that leads to persistent vomiting. ??? You have any of these urinary symptoms: ? Increased blood or blood clots in the urine. ? Urine that smells bad or unusual. ? A strong urge to urinate after emptying your bladder. ? Pain or burning with urination that does not go away. ? A continued need to urinate more often than usual. ??? You have a stent, and it comes out. Get help right away if: ??? You have severe pain in your back, sides, or upper abdomen. ??? You faint. ??? You have any of these urinary symptoms: ? Severe pain while urinating. ? More blood in your urine, or blood in your urine when you did not have any before. ? Blood clots in your urine larger than 1 inch (2.5 cm) in size. ? You pass only a small amount of urine when you urinate or are unable to pass any urine. This information is not intended to replace advice given to you by your health care provider. Make sure you discuss any questions you have with your health care provider. Document Revised: (more content not included)... [facility] 06-05-2024 Hospital Discharge instructions Patient Education 06/05/2024 14:28:55 ESWL for Kidney Stones ESWL for Kidney Stones Extracorporeal shock wave lithotripsy (ESWL) is a treatment that can help break up kidney stones that are too large to pass on their own. This is a nonsurgical procedure that breaks up a kidney stone with shock waves. These shock waves pass through your body and focus on the kidney stone. They cause the kidney stone to break into smaller pieces (fragments) while it is still in the urinary tract. The fragments of stone can pass more easily out of your body in the urine. Tell a health care provider about: Any allergies you have. All medicines you are taking, including vitamins, herbs, eye drops, creams, and cicu-hyg-kkhwuwr medicines. Any problems you or family members have had with anesthetic medicines. Any bleeding problems you have. Any surgeries you have had. Any medical conditions you have. Whether you are or may be . What are the risks? Your health care provider will talk with you about risks. These may include: Infection. Bleeding from the kidney. Bruising of the kidney or skin. Scarring of the kidney. This can lead to: ?Increased blood pressure. ?Poor kidney function. ?Return (recurrence) of kidney stones. Damage to other structures or organs. This may include the liver, colon, spleen, or pancreas. Blockage (obstruction) of the tube that carries urine from the kidney to the bladder (ureter). Failure of the kidney stone to break into fragments. What happens before the procedure? When to stop eating and drinking Follow instructions from your health care provider about what you may eat and drink. These may include: 8 hours before your procedure ?Stop eating most foods. Do not eat meat, fried foods, or fatty foods. ?Eat only light foods, such as toast or crackers. ?All liquids are okay except energy drinks and alcohol. 6 hours before your procedure ?Stop eating. ?Drink only clear liquids, such as water, clear fruit juice, black coffee, plain tea, and sports drinks. ?Do not drink energy drinks or alcohol. 2 hours before your procedure ?Stop drinking all liquids. ?You may be allowed to take medicines with small sips of water. If you do not follow your health care provider's instructions, your procedure may be delayed or canceled. Medicines Ask your health care provider about: Changing or stopping your regular medicines. These include any diabetes medicines or blood thinners you take. Taking medicines such as aspirin and ibuprofen. These medicines can thin your blood. Do not take them unless your health care provider tells you to. Taking ztan-cvi-pvyprtv medicines, vitamins, herbs, and supplements. Tests You may have tests, such as: Blood tests. Urine tests. Imaging tests. This may include a CT scan. Surgery safety Ask your health care provider: How your surgery site will be marked. What steps will be taken to help prevent infection. These steps may include: ?Washing skin with a soap that kills germs. ?Receiving antibiotics. General instructions If you will be going home right after the procedure, plan to have a responsible adult: ?Take you home from the hospital or clinic. You will not be allowed to drive. ?Care for you for the time you are told. What happens during the procedure? An IV will be inserted into one of your veins. You may be given: ?A sedative. This helps you relax. ?Anesthesia. This will: ?Numb certain areas of your body. ?Make you fall asleep for surgery. A water-filled cushion may be placed behind your kidney or on your abdomen. In some cases, you may be placed in a tub of lukewarm water. Your body will be positioned in a way that makes it easier to target the kidney stone. An X-ray or ultrasound exam will be done to locate your stone. Shock waves will be aimed at the stone. If you are awake, you may feel a tapping sensation as the shock waves pass through your body. A small mesh tube (stent) may be placed in your ureter. This will help keep urine flowing from the kidney if the fragments of the stone have been blocking the ureter. The stent will be removed at a later time by your health care provider. The procedure may vary among health care providers and hospitals. What happens after the procedure? Your blood pressure, heart rate, breathing rate, and blood oxygen level will be monitored until you leave the hospital or clinic. You may have an X-ray after the procedure to see how many of the kidney stones were broken up. This will also show how much of the stone has passed. If there are still large fragments after treatment, you may need to have a second procedure at a later time. This information is not intended to replace advice given to you by your health care provider. Make sure you discuss any questions you have with your health care provider. Document Revised: 08/04/2022 Document Reviewed: 08/04/2022 [employer] Patient Education 2023 [employer]. 06/05/2024 14:28:51 Laser Therapy for Kidney Stones Laser Therapy for Kidney Stones Laser therapy for kidney stones is a procedure to break up rock-like masses that form inside the kidneys (kidney stones). It is done using a device that beams a strong light (laser) on the kidney stones. This breaks the stones up into small pieces. These small pieces may leave your body when you pee (urinate) or may be taken out during the procedure. You may need laser therapy if you have kidney stones that are painful or that are stopping you from being able to pee. Tell a health care provider about: Any allergies you have. All medicines you are taking, including vitamins, herbs, eye drops, creams, and mvep-ihk-twabhrl medicines. Any problems you or family members have had with anesthesia. Any bleeding problems you have. Any surgeries you have had. Any medical conditions you have. Whether you are or may be . What are the risks? Your health care provider will talk with you about risks. These may include: Infection. Bleeding. Allergic reactions to medicines. Damage to: ?The part of your body that drains pee (urine) from the bladder (urethra). ?The bladder. ?The tube that connects the bladder to the kidneys (ureter). Urinary tract infection (UTI). Urethral stricture. This is when the urethra is narrowed by scarring. Trouble peeing. Blockage of the kidney. This may be caused by a piece of kidney stone. What happens before the procedure? When to stop eating and drinking Follow instructions from your provider about what you may eat and drink. These may include: 8 hours before the procedure ?Stop eating most foods. Do not eat meat, fried foods, or fatty foods. ?Eat only light foods, such as toast or crackers. ?All liquids are okay except energy drinks and alcohol. 6 hours before the procedure ?Stop eating. ?Drink only clear liquids, such as water, clear fruit juice, black coffee, plain tea, and sports drinks. ?Do not drink energy drinks or alcohol. 2 hours before the procedure ?Stop drinking all liquids. ?You may be allowed to take medicines with small sips of water. If you do not follow your provider's instructions, your procedure may be delayed or canceled. Medicines Ask your provider about: ?Changing or stopping your regular medicines. These include any diabetes medicines or blood thinners you take. ?Taking medicines such as aspirin and ibuprofen. These medicines can thin your blood. Do not take them unless your provider tells you to. ?Taking zrwz-mnv-tcrnkzc medicines, vitamins, herbs, and supplements. Tests You may have a physical exam before the procedure. You may also have tests done. These may include: ?Imaging tests. ?Blood or pee tests. Surgery safety Ask your provider: ?How your surgery site will be marked. ?What steps will be taken to help prevent infection. These steps may include: ?Removing hair at the surgery site. ?Washing skin with a soap that kills germs. ?Taking antibiotics. General instructions Do not use any products that contain nicotine or tobacco for at least 4 weeks before the procedure. These products include cigarettes, chewing tobacco, and vaping devices, such as e-cigarettes. If you need help quitting, ask your provider. If you will be going home right after the procedure, plan to have a responsible adult: ?Take you home from the hospital or clinic. You will not be allowed to drive. ?Care for you for the time you are told. What happens during the procedure? An IV will be inserted into one of your veins. You will be given: ?A sedative. This helps you relax. ?Anesthesia. This keeps you from feeling pain. It will make you fall asleep for surgery. A tool with a camera on the end (ureteroscope) will be put into your urethra. It will be moved through your bladder to your kidney. It will send pictures to a screen in the operating room. This will show what parts of your kidney need to be treated. A tube will be put through the ureteroscope. It will be moved into your kidney. The laser device will be put into your kidney through the tube. The laser will be used to break up the kidney stones. A tool with a tiny wire basket may be put through the tube into your kidney. This can help remove the small pieces of the kidney stone. A small mesh tube (stent) may be placed to allow your kidney to drain. The tube and ureteroscope will be taken out at the end of the surgery. The procedure may vary among providers and hospitals. What happens after the procedure? Your blood pressure, heart rate, breathing rate, and blood oxygen level will be monitored until you leave the hospital or clinic. If you had a stent placed, it may have a string that will be secured to your skin. This helps your provider remove the stent. You may be given a strainer to collect any stone pieces that you pass in your pee. Your provider may have these tested. This information is not intended to replace advice given to you by your health care provider. Make sure you discuss any questions you have with your health care provider. Document Revised: 12/02/2022 Document Reviewed: 12/02/2022 [employer] Patient Education 2023 [employer]. 06/05/2024 14:18:21 Steps to Quit Smoking Steps to Quit Smoking Smoking tobacco is the leading cause of preventable . It can affect almost every organ in the body. Smoking puts you and those around you at risk for developing many serious chronic diseases. Quitting smoking can be very challenging. Do not get discouraged if you are not successful the first time. Some people need to make many attempts to quit before they achieve long-term success. Do your best to stick to your quit plan, and talk with your health care provider if you have any questions or concerns. How do I get ready to quit? When you decide to quit smoking, create a plan to help you succeed. Before you quit: Pick a date to quit. Set a date within the next 2 weeks to give you time to prepare. Write down the reasons why you are quitting. Keep this list in places where you will see it often. Tell your family, friends, and co-workers that you are quitting. Support from people you are close to can make quitting easier. Talk with your health care provider about your options for quitting smoking. Find out what treatment options are covered by your health insurance. Identify people, places, things, and activities that make you want to smoke (triggers). Avoid them. What first steps can I take to quit smoking? Throw away all cigarettes at home, at work, and in your car. Throw away smoking accessories, such as ashtrays and lighters. Clean your car. Make sure to empty the ashtray. Clean your home, including curtains and carpets. What strategies can I use to quit smoking? Talk with your health care provider about combining strategies, such as taking medicines while you are also receiving in-person counseling. Using these two strategies together makes you more likely to succeed in quitting than if you used either strategy on its own. If you are or , talk with your health care provider about finding counseling or other support strategies to quit smoking. Do not take medicine to help you quit smoking unless your health care provider tells you to. Quit right away Quit smoking completely, instead of gradually reducing how much you smoke over a period of time. Stopping smoking right away may be more successful than gradually quitting. Attend in-person counseling to help you build problem-solving skills. You are more likely to succeed in quitting if you attend counseling sessions regularly. Even short sessions of 10 minutes can be effective. Take medicine You may take medicines to help you quit smoking. Some medicines require a prescription. You can also purchase msjo-xrc-kvqqypa medicines. Medicines may have nicotine in them to replace the nicotine in cigarettes. Medicines may: Help to stop cravings. Help to relieve withdrawal symptoms. Your health care provider may recommend: Nicotine patches, gum, or lozenges. Nicotine inhalers or sprays. Non-nicotine medicine that you take by mouth. Find resources Find resources and support systems that can help you quit smoking and remain smoke-free after you quit. These resources are most helpful when you use them often. They include: Online chats with a counselor. Telephone quitlines. Printed self-help materials. Support groups or group counseling. Text messaging programs. Mobile phone apps or applications. Use apps that can help you stick to your quit plan by providing reminders, tips, and encouragement. Examples of free services include Quit Guide from the CDC and smokefree.gov What can I do to make it easier to quit? Reach out to your family and friends for support and encouragement. Call telephone quitlines, such as 3-571-COLY-NOW, reach out to support groups, or work with a counselor for support. Ask people who smoke to avoid smoking around you. Avoid places that trigger you to smoke, such as bars, parties, or smoke-break areas at work. Spend time with people who do not smoke. Lessen the stress in your life. Stress can be a smoking trigger for some people. To lessen stress, try: ?Exercising regularly. ?Doing deep-breathing exercises. ?Doing yoga. ?Meditating. What benefits will I see if I quit smoking? Over time, you should start to see positive results, such as: Improved sense of smell and taste. Decreased coughing and sore throat. Slower heart rate. Lower blood pressure. Clearer and healthier skin. The ability to breathe more easily. Fewer sick days. Summary Quitting smoking can be very challenging. Do not get discouraged if you are not successful the first time. Some people need to make many attempts to quit before they achieve long-term success. When you decide to quit smoking, create a plan to help you succeed. Quit smoking right away, not slowly over a period of time. Find resources and support systems that can help you quit smoking and remain smoke-free after you quit. This information is not intended to replace advice given to you by your health care provider. Make sure you discuss any questions you have with your health care provider. Document Revised: 03/25/2022 Document Reviewed: 03/25/2022 [employer] Patient Education 2023 [employer]. 06/05/2024 14:14:35 Dietary Guidelines to Help Prevent Kidney Stones Dietary Guidelines to Help Prevent Kidney Stones Kidney stones are deposits of minerals and salts that form inside your kidneys. Your risk of developing kidney stones may be greater depending on your diet, your lifestyle, the medicines you take, and whether you have certain medical conditions. Most people can lower their risks of developing kidney stones by following these dietary guidelines. Your dietitian may give you more specific instructions depending on your overall health and the type of kidney stones you tend to develop. What are tips for following this plan? Reading food labels Choose foods with no salt added or low-salt labels. Limit your salt (sodium) intake to less than 1,500 mg a day. Choose foods with calcium for each meal and snack. Try to eat about 300 mg of calcium at each meal. Foods that contain 200 500 mg of calcium a serving include: ?8 oz (237 mL) of milk, mwpyspd-fcwdswgxgswu-walqh milk, and calcium-fortifiedfruit juice. Calcium-fortified means that calcium has been added to these drinks. ?8 oz (237 mL) of kefir, yogurt, and soy yogurt. ?4 oz (114 g) of tofu. ?1 oz (28 g) of cheese. ?1 cup (150 g) of dried figs. ?1 cup (91 g) of cooked broccoli. ?One 3 oz (85 g) can of sardines or mackerel. Most people need 1,000 1,500 mg of calcium a day. Talk to your dietitian about how much calcium is recommended for you. Shopping Buy plenty of fresh fruits and vegetables. Most people do not need to avoid fruits and vegetables, even if these foods contain nutrients that may contribute to kidney stones. When shopping for convenience foods, choose: ?Whole pieces of fruit. ?Pre-made salads with dressing on the side. ?Low-fat fruit and yogurt smoothies. Avoid buying frozen meals or prepared deli foods. These can be high in sodium. Look for foods with live cultures, such as yogurt and kefir. Choose high-fiber grains, such as whole-wheat breads, oat bran, and wheat cereals. Cooking Do not add salt to food when cooking. Place a salt shaker on the table and allow each person to add their own salt to taste. Use vegetable protein, such as beans, textured vegetable protein (TVP), or tofu, instead of meat in pasta, casseroles, and soups. Meal planning Eat less salt, if told by your dietitian. To do this: ?Avoid eating processed or pre-made food. ?Avoid eating fast food. Eat less animal protein, including cheese, meat, poultry, or fish, if told by your dietitian. To do this: ?Limit the number of times you have meat, poultry, fish, or cheese each week. Eat a diet free of meat at least 2 days a week. ?Eat only one serving each day of meat, poultry, fish, or seafood. ?When you prepare animal proteins, cut pieces into small portion sizes. For most meat and fish, one serving is about the size of the palm of your hand. Eat at least five servings of fresh fruits and vegetables each day. To do this: ?Keep fruits and vegetables on hand for snacks. ?Eat one piece of fruit or a handful of berries with breakfast. ?Have a salad and fruit at lunch. ?Have two kinds of vegetables at dinner. You may be told to limit foods that are high in a substance called oxalate. These include: ?Spinach (cooked), rhubarb, beets, sweet potatoes, and Afghan chard. ?Peanuts. ?Potato chips, sri lankan fries, and baked potatoes with skin on. ?Nuts and nut products. ?Chocolate. If you regularly take a diuretic medicine, make sure to eat at least 1 or 2 servings of fruits or vegetables that are high in potassium each day. These include: ?Avocado. ?Banana. ?Red Willow, prune, carrot, or tomato juice. ?Baked potato. ?Cabbage. ?Beans and split peas. Lifestyle Drink enough fluid to keep your urine pale yellow. This is the most important thing you can do. Spread your fluid intake throughout the day. If you drink alcohol: ?Limit how much you have to: ?0 1 drink a day for women who are not . ?0 2 drinks a day for men. ?Know how much alcohol is in your drink. In the [place] one drink equals one 12 oz bottle of beer (355 mL), one 5 oz glass of wine (148 mL), or one 1 oz glass of hard liquor (44 mL). Lose weight if told by your health care provider. Work with your dietitian to find an eating plan and weight loss strategies that work best for you. General information Talk to your health care provider and dietitian about taking daily supplements. Depending on your health and the cause of your kidney stones, you may be told: ?Do not take high-dose supplements of vitamin C (1,000 mg a day or more). ?To take a calcium supplement. ?To take a daily probiotic supplement. ?To take other supplements such as magnesium, fish oil, or vitamin B6. Take sibf-ikk-fmpznmk and prescription medicines only as told by your health care provider. These include supplements. What foods should I limit? Limit your intake of the following foods, or eat them as told by your dietitian. Vegetables Spinach. Rhubarb. Beets. Canned vegetables. Pickles. Olives. Baked potatoes with skin. Grains Wheat bran. Baked goods. Salted crackers. Cereals high in sugar. Meats and other proteins Nuts. Nut butters. Large portions of meat, poultry, or fish. Salted, precooked, or cured meats, such as sausages, meat loaves, and hot dogs. Dairy Cheeses. Beverages Regular soft drinks. Regular vegetable juice. Seasonings and condiments Seasoning blends with salt. Salad dressings. Soy sauce. Ketchup. Barbecue sauce. Other foods Canned soups. Canned pasta sauce. Casseroles. Pizza. Lasagna. Frozen meals. Potato chips. Georgian fries. The items listed above may not be a complete list of foods and beverages you should limit. Contact a dietitian for more information. What foods should I avoid? Talk to your dietitian about specific foods you should avoid based on the type of kidney stones you have and your overall health. Fruits Grapefruit. The item listed above may not be a complete list of foods and beverages you should avoid. Contact a dietitian for more information. Summary Kidney stones are deposits of minerals and salts that form inside your kidneys. You can lower your risk of kidney stones by making changes to your diet. The most important thing you can do is drink enough fluid. Drink enough fluid to keep your urine pale yellow. Talk to your dietitian about how much calcium you should have each day, and eat less salt and animal protein as told by your dietitian. This information is not intended to replace advice given to you by your health care provider. Make sure you discuss any questions you have with your health care provider. Document Revised: 07/14/2022 Document Reviewed: 07/14/2022 [employer] Patient Education 2023 [employer]. Follow Up Care 05/31/2024 10:48:28 With:YUN GRACE, Joe R, URL Address: [facility] [address] [place] [address]- When: Unknown [facility] 06-05-2024 Note Patient Education Nephrology ESWL for Kidney Stones Extracorporeal shock wave lithotripsy (ESWL) is a treatment that can help break up kidney stones that are too large to pass on their own. This is a nonsurgical procedure that breaks up a kidney stone with shock waves. These shock waves pass through your body and focus on the kidney stone. They cause the kidney stone to break into smaller pieces (fragments) while it is still in the urinary tract. The fragments of stone can pass more easily out of your body in the urine. Tell a health care provider about: ??? Any allergies you have. ??? All medicines you are taking, including vitamins, herbs, eye drops, creams, and rdow-qtm-othwqeg medicines. ??? Any problems you or family members have had with anesthetic medicines. ??? Any bleeding problems you have. ??? Any surgeries you have had. ??? Any medical conditions you have. ??? Whether you are or may be . What are the risks? Your health care provider will talk with you about risks. These may include: ??? Infection. ??? Bleeding from the kidney. ??? Bruising of the kidney or skin. ??? Scarring of the kidney. This can lead to: ? Increased blood pressure. ? Poor kidney function. ? Return (recurrence) of kidney stones. ??? Damage to other structures or organs. This may include the liver, colon, spleen, or pancreas. ??? Blockage (obstruction) of the tube that carries urine from the kidney to the bladder (ureter). ??? Failure of the kidney stone to break into fragments. What happens before the procedure? When to stop eating and drinking Follow instructions from your health care provider about what you may eat and drink. These may include: ??? 8 hours before your procedure ? Stop eating most foods. Do not eat meat, fried foods, or fatty foods. ? Eat only light foods, such as toast or crackers. ? All liquids are okay except energy drinks and alcohol. ??? 6 hours before your procedure ? Stop eating. ? Drink only clear liquids, such as water, clear fruit juice, black coffee, plain tea, and sports drinks. ? Do not drink energy drinks or alcohol. ??? 2 hours before your procedure ? Stop drinking all liquids. ? You may be allowed to take medicines with small sips of water. If you do not follow your health care provider's instructions, your procedure may be delayed or canceled. Medicines Ask your health care provider about: ??? Changing or stopping your regular medicines. These include any diabetes medicines or blood thinners you take. ??? Taking medicines such as aspirin and ibuprofen. These medicines can thin your blood. Do not take them unless your health care provider tells you to. ??? Taking jilj-flm-qtmqfgy medicines, vitamins, herbs, and supplements. Tests You may have tests, such as: ??? Blood tests. ??? Urine tests. ??? Imaging tests. This may include a CT scan. Surgery safety Ask your health care provider: ??? How your surgery site will be marked. ??? What steps will be taken to help prevent infection. These steps may include: ? Washing skin with a soap that kills germs. ? Receiving antibiotics. General instructions ??? If you will be going home right after the procedure, plan to have a responsible adult: ? Take you home from the hospital or clinic. You will not be allowed to drive. ? Care for you for the time you are told. What happens during the procedure? An IV will be inserted into one of your veins. ??? You may be given: ? A sedative. This helps you relax. ? Anesthesia. This will: ? Numb certain areas of your body. ? Make you fall asleep for surgery. ??? A water-filled cushion may be placed behind your kidney or on your abdomen. In some cases, you may be placed in a tub of lukewarm water. ??? Your body will be positioned in a way that makes it easier to target the kidney stone. ??? An X-ray or ultrasound exam will be done to locate your stone. ??? Shock waves will be aimed at the stone. If you are awake, you may feel a tapping sensation as the shock waves pass through your body. ??? A small mesh tube (stent) may be placed in your ureter. This will help keep urine flowing from the kidney if the fragments of the stone have been blocking the ureter. The stent will be removed at a later time by your health care provider. The procedure may vary among health care providers and hospitals. What happens after the procedure? Your blood pressure, heart rate, breathing rate, and blood oxygen level will be monitored until you leave the hospital or clinic. ??? You may have an X-ray after the procedure to see how many of the kidney stones were broken up. This will also show how much of the stone has passed. If there are still large fragments after treatment, you may need to have a second procedure at a later time. This information is not intended to replace advice given to you b (more content not included)... [facility] 05-30-2024 Radiology Diagnostic study note [facility] [place] [address] [place] [address] CT Scan Report Signed Patient: Gordon Carrasquillo MR#: [id number] : 1980 Acct:[id number] Age/Sex: 43 / M ADM Date: 5 Loc: ER Room: Type: PRE ER Attending Dr: Copies to: Karol Tovar APRN TEMP, PROVIDER~ Ordering Provider: Karol Tovar APRN Date of Service: 05/30/24 CT/CT abdomen pelvis wo con: pain CT ABDOMEN AND PELVIS WITHOUT INTRAVENOUS CONTRAST: CLINICAL HISTORY: Lower abdominal pain since 5:30, hematuria, history of kidneystones COMPARISON: 01/15/2020 TECHNIQUE: Spiral images were obtained through the abdomen and pelvis without intravenous contrast. This CT exam was performed using one or more following dose reduction techniques: Automated exposure control, adjustment of the mA and/or kV according to patient size, or use of iterative reconstruction technique. FINDINGS: Lung Bases: [Lung bases are clear.] Organs:There is fatty infiltration liver. Otherwise the liver, spleen, adrenal glands, pancreas unremarkable. Gallbladder appears contracted. Kidneys measuresize. Punctate right lower pole calculi nonobstructive. Evidence of left lowerpole calculus 8 mm in size nonobstructive. Mild left-sided hydroureteronephrosis.. Left distal ureteral calculi up to 1 cm and craniocaudal length and 6 x 4 mm on the axial images..[ GI: Mild retained stool. No bowel obstruction. Appendix unremarkable.[ Pelvis:[Bladder collapsed. Prostate is 4 cm transverse . Small fat-containing right inguinal hernia Peritoneum/Retroperitoneum:No free air or free fluid. No bulky adenopathy. Tiny fat-containing umbilical hernia.[ Abd wall/Bones:Degenerative changes lower lumbar spine.[ CT/CT abdomen pelvis wo con IMPRESSION: Mild left-sided hydroureteronephrosis caused by left distal ureteral calculi 6 x 4 x 10 mm Impression dictated by: Brayan Briseno M.D.05/30/2024 10:44 PM Dictation Location: [facility]- Transcribed By: [facility] 05/30/242243 Dictated By: Brayan Briseno MD 05/30/242237 Signed By: 05/30/242243 [facility] Work Phone: 08-14-2021 Evaluation note Encounter Date Diagnosis Assessment Notes Jul, Strep throat (ICD-10 - J02.0) Pt is to take abx as prescribed. Cont to finish PCN abx that was previously prescribed as well. take with food. Push fluids and rest. Pt is to take otc antipyretic prn for fever and aches. Pt is to be re-evaluated after treatment if sx worsen or don't improve by pcp. Pt is to call the office with any questions or concerns regarding dx and tx. Pt understood and agreed to treatment plan. [employer] Other [id number] Evaluation note* Encounter Date Diagnosis Assessment Notes Treatment Notes Treatment Clinical Notes Jul, Strep pharyngitis (ICD-10 - J02.0) Advised patient that strep test was positive. Instructed to take antibiotic as directed, complete entire course even if feeling better. Allergies and recent antibiotics reviewed. Advised that patient is contagious for 24 hours after starting antibiotic. Discussed good hand hygiene and infection control. New tooth brush and wash linens after 2-3 days of being on antibiotic to prevent reinfection. Discussed supportive care, push fluids and rest, eat soft foods and liquids that are easy to swallow, use throat lozenges and warm salt water gargles, Tylenol/Motrin as needed for fever or discomfort. Symptoms should improve in the next 48 hours, eval by PCP or UC if symptoms have not improved with treatment. Immediate eval if difficultly managing oral secretions, drooling, unilateral neck swelling, hot potato voice, persistent fever, neck pain/stiffness, severe headache, lethargy or any new or concerning symptoms arise. Patient verbalizes understanding and is agreeable to treatment plan Jul, Acute effusion of both middle ears (ICD-10 - H65.193) Discussed diagnosis with patient, explained to patient that there is middle ear fluid without signs of bacterial infection, antibiotics are not indicated at this time. This is commonly due to ET dysfunction, viral illness, allergies, barotrauma, or recent AOM. Advised patient that fluid in middle ear may take several weeks to resolve. Take rx medications of Flonase and Cetirizine as directed. Supportive treatment as directed, push fluids/test, Tylenol/Motrin for discomfort. Follow up with PCP in 2 weeks or sooner for new or worsening symptoms. Patient verbalizes understanding and is agreeable to treatment plan Jul, Sore throat (ICD-10 - J02.9) [employer] Other 11-15-2021 NoteHNO ID: [id number] Author: Rosita Hopson Ma Service: ? Author Type: ? Type: Progress Notes Filed: 03/01/2021 2:39 PM Note Text: PUSH 24 month visit IRB #[id number] Date of visit 03/01/2021 How is the participant contacted? IBy Phone Participant status at this visit: Closeout visit Has the participant re-consented since the last visit? No Current weight? 309 lb Current height? 6'0 Has the participant experienced the following events since the last study contact? No Hospitalization Surgery or procedure for stone Positive test New stone development Is there a scan or image of the new stone? What type of stone (struvite, cysteine, calcium, uric acid, unsure) Hyponatremia Advanced CHF Cirrhosis with ascites Recurrent UTI What providers are you currently seeing for stone care? Not currently seeing a provider for stone care. Has the participant had a change in medications or diet since the last PUSH study contact? No Has the participant started a new medication? [facility] 02-26-2021 NoteHNO ID: [id number] Author: Chelsea Aguilera MD Service: ? Author Type: Fellow Type: Progress Notes Filed: 02/26/2021 4:33 PM Note Text: IRB: [id number] Prevention of Urinary Stones with Hydration PI: Dr. Alessio Navarro Study Imaging Review Date of Study: 02/20/[address] scan machine used: Siemens Image quality: good Findings: Were multiple stones found? No If Yes, how many stones? 1 Stones present at baseline? Yes For each individual stone, please indicate Location: left Lower Pole Size (mm) Length 3.8 Width 4.5 [facility] NoteHNO ID: [id number] Author: MISTY HsuR) Service: ? Author Type: Technologist Type: Progress Notes Filed: 02/20/2021 8:07 AM Note Text: Radiology Service Progress Note PATIENT NAME: Gordon Carrasquillo DATE OF SERVICE: February 20, 2021 TIME: 8:07 AM PATIENT IDENTITY VERIFICATION COMPLETED USING TWO (2) IDENTIFIERS: Name and Date of confirmed by patient verbally and Name and Date of confirmed by identification band. FALL SCREENING: Has the patient had 2 falls in the last year or 1 fall with injury or currently using an Ambulatory Assistive Device (Walker, Cane, Wheelchair, Crutches, etc.)? No PATIENT GENDER DATA: Male PATIENT RELEVANT IMPLANT DATA REVIEWED: Not Applicable RADIOLOGY DEPARTMENT: CT; Exam(s) Completed: Abdomen/Pelvis PERIPHERAL IV DATA: Not applicable SIGNED BY: RT Aracelis(Ahmet) February 20, 2021 8:07 [id number] NoteHNO ID: [id number] Author: CHINYERE Aiken) Service: ? Author Type: Clinical Physician Assistant Primary Care Type: Progress Notes Filed: 02/20/2021 8:21 AM Note Text: Radiology Service Progress Note PATIENT NAME: Gordon Carrasquillo DATE OF SERVICE: February 20, 2021 TIME: 8:21 AM PATIENT IDENTITY VERIFICATION COMPLETED USING TWO (2) IDENTIFIERS: Name and Date of confirmed by patient verbally and Name and Date of confirmed by identification band. FALL SCREENING: Has the patient had 2 falls in the last year or 1 fall with injury or currently using an Ambulatory Assistive Device (Walker, Cane, Wheelchair, Crutches, etc.)? No PATIENT GENDER DATA: Male PATIENT RELEVANT IMPLANT DATA REVIEWED: Not Applicable RADIOLOGY DEPARTMENT: CT; Exam(s) Completed: Abdomen/Pelvis PERIPHERAL IV DATA: Not applicable SIGNED BY: Shara Conti, RT(R) February 20, 2021 8:21 [facility] Future App[facility]ments Appointment Date:06/19/2024 09:45:00 AM Scheduled Provider:Jeo PARRISH MD [facility] Appointment Type:URO Office Visit [facility] Evaluation + Plan note Future Appointments Appointment Date:06/19/2024 09:45:00 AM Scheduled Provider:Joe PARRISH MD Location:[facility] Appointment Type:URO Office Visit Diagnostic Tests Pending * Urine Culture 06/14/24 [facility] Evaluation noteNo assessment information available [facility] [employer] Work Phone: History general Narrative - Reported* Type Description Date Surgical History cyst on [employer] Other Hospital course Narrative No data available for this section [facility] Hospital Discharge instructions Additional Instructions You do have a kidney stone. Actually, you appear to have 2 kidney stones down near your bladder on the left side. As we discussed, it is possible that you also have a urine infection. We will not know this until a culture comes back, but I am going to put you on antibiotics. If you have fever, severe uncontrolled pain, persistent vomiting, or any other concerns, I do want you to come back here. You should follow-up with the urologist in any event. Please make sure to strain your urine so that we know that both stones have been passed. Call the urology office in the morning to make an appointment.[facility] [employer] Work Phone: Hospital Discharge instructions No data available for this section [facility] Progress note No data available for this section [facility] [place] Summary Purpose Family History No Family History Records Found Relationship Condition Age at Onset Recorded Date/T abi father Hypertension Unknown grandparent Myocardial infarction Unknown Advance Directives No Advanced Directives Records Found Advance Directive Response Recorded Date/ Time Advance Directives No February 02, 2018 2:33pm Chief Complaint and Reason for Visit Chief Complaint Admit Date abd pain, bloos in urine May 30, 2024 8:03pm Additional Source Comments (unrecognized sect ion and content) No Status Records FoundNo Status Records FoundNo Status Records FoundNo Status Records FoundNo Status Records FoundNo Status Records Found INFORMATION SOURCE (unrecogn ized section and content) DATE CREATED AUTHOR 02/21/2021 [facility] DATE CREATED AUTHOR AUTHOR'S ORGANIZ ATION 05/27/2021 [facility] DATE CREATED AUTHOR AUTHOR'S ORGANIZ ATION 06/12/2024 [facility] DATE CREATED AUTHOR AUTHOR'S ORGANIZ ATION 06/18/2024 [facility] DATE CREATED AUTHOR AUTHOR'S ORGANIZ ATION 06/21/2024 [facility] REASON FOR VISIT (unrecogniz ed section and content) FULLY VACCINATED, CONGESITON , COUGH, SORE THROATSORE THROAT, DRAINAGE Care Teams (unrecognized sec tion and content) Team Status: Active Member Role Status Dates PHYSICIAN NO FAMILY Primary Care Provider Active Team Status: Inactive Member Role Status Dates PHYSICIAN NO FAMILY Primary Care Provider Active Start: May 30, 2024 End: May 31, 2024 Reuben Freire Jr, MD Emergency Provider Active Start: May 30, 2024 End: May 31, 2024 Goals (unrecognized section and content) Goals may be documented in a n alternate section FOR RECORDS PERTAINING TO PATIENTS WHO ARE OR HAVE BEEN ENROLLED IN A CHEMICAL DEPENDENCY/SUBSTANCEABUSE PROGRAM, SOME INFORMATION MAY BE OMITTED. This clinical summary was aggregated from multiple sources. Caution should be exercised in using it in the provision of clinical care. This summary normalizes information from multiple sources, and as a consequence, information in this document may materially change the coding, format and clinical context of patient data. In addition, data may be omitted in some cases. CLINICAL DECISIONS SHOULD BE BASED ON THE PRIMARY CLINICAL RECORDS. [employer] [facility]. provides no warranty or guarantee of the accuracy or completeness of information in this document.
--- NOTE | 2024-06-24 11:30 | XR_ITS ---
The [address] [address] Patient Name: GORDON CARRASQUILLO MRN: [id number] date: 1980 Sex: M Assigned Patient Location: [facility] Current Patient Location: [facility] Accession/Order Number: [id number] Exam Date: 06/24/2024 13:58 Report Date: 06/24/2024 14:02 At the request of: MARK MALCOLM MD Procedure: XR abdomen 1V SINGLE VIEW ABDOMEN COMPARISON: None CLINICAL DATA: History of left ureteral stone. Presurgical evaluation. Supine views of the abdomen and pelvis were obtained. There is air within the ascending and transverse colon. No dilated small bowel is present. The right kidney is partially obscured. There is a suspected stone at the lower pole of the left kidney measuring approximately 7 mm in size. There is also suggestion of a potential small 4 mm stone at the midpole on the right. There are pelvic calcifications bilaterally. These might be phleboliths. No soft tissue masses are noted. There is slight dextroscoliotic curvature as well as degenerative change at the spine. There is also mild degenerative change at the hips. XR/XR abdomen 1V IMPRESSION: SUSPECTED BILATERAL NEPHROLITHIASIS. NO OBVIOUS URETERAL STONES. CORRELATION WITH PRIOR STUDIES IS HOWEVER SUGGESTED. Impression dictated by: Ramona Yun M.D.06/24/2024 2:02 PM Dictation Location: [place] [address] Electronically authenticated by: [id number] Y Date: 06/24/2024 14:02
[2024-06-24 11:33] LABS: Partial Thromboplastin Time 27.3 sec (22.3-36.2); Prothrombin Time 10.6 sec (9.0-11.6)
[2024-06-24] MEDS: LACTATED RINGER'S SOLUTION 1,000 ML 50 ML IV ×2 (12:17→14:34)
[2024-06-24] MEDS: CEFAZOLIN SODIUM 3,000 MG in 0.9 % SODIUM CHLORIDE 100 ML 200 MG IV (12:31)
--- NOTE | 2024-06-24 12:53 | PM.URSON ---
Urology Surgery Operative Note Operative Note Procedure Date: 06/24/24 Time Out Performed: yes Pre-op Diagnosis: Left nephrolithiasis Post-op Diagnosis: same as pre-op Procedures performed: 1. Left ESWL. Anesthesia: General-LMA Primary Surgeon: Joe Parrish Complications: None Estimated blood loss (mL): 0 Findings: 7 to 8 mm left renal stone Specimens: None Drains: None Indications for Procedures: This gentleman had a ureteral stone which he was able to pass recently. He now has an 7mm left renal stone. He is desirous for left ESWL. He has signed an informed consent after risks were explained. Some of these risks include bleeding, perinephric hematoma, infection and anesthesia to name a few. Detailed description of Procedure: The patient was brought to the Operating Room and placed on Siemens electromagnetic lithotripsy treatment table in the supine position. SCDs were placed on their lower extremities and turned on and functioning during the entire case. Timeout was done by all parties in the room. We all agreed upon the patient's identification and the planned procedures for this patient. General Anesthesia was then administered via LMA. Treatment head was then brought to the patient's left side. While using flourscopy the stone was identified and lined up into the crosshairs. We then began applying shocks. We started at power level 2.0 and increased to a maximum power level 3.5. Intermittent fluoroscopy revealed that the stone steadily fragmented. We applied a total of 2000 shocks. Our last fluoroscopic image revealed no evidence of formed stone remaining. The procedure was then terminated. He was then transferred to a r[place]umbia bed and wheeled to PACU in stable condition.
--- NOTE | 2024-06-24 13:10 | PC.NURSE ---
1255- BP 75/51. Head of bed lowered and fluids opened wide. Jose Farah CRNA at bedside.
--- NOTE | 2024-06-24 13:11 | PC.NURSE ---
1300- Patient opens eyes to name. LMA removed at O2 applied at 2l/min via nc.
--- NOTE | 2024-06-24 14:39 | PC.NURSE ---
Denies urge to void
--- NOTE | 2024-06-24 15:06 | PC.NURSE ---
Up to bathroom and voids brown urine without difficulty
== END 2024-06-24 15:07 | disposition home or self-care (01) ==
PROVIDERS: Visit Provider Urology
PROC: (CPT 873; principal; 2024-06-24 12:15)
DX: N20.0 Calculus of kidney (principal); Z87.442 Personal history of urinary calculi; F17.210 Nicotine dependence, cigarettes, uncomplicated; E66.01 Morbid (severe) obesity due to excess calories; Z68.42 Body mass index [BMI] 45.0-49.9, adult; G62.9 Polyneuropathy, unspecified
CPT/HCPCS: 50590; 36415; 74018; 82365; 85610; 85730; J0690; J1100; J1885; J2250; J2405; J2704; J3010